=== PATIENT | male | born 1940 | race Hispanic/Latino ===

== ENCOUNTER 2018-02-26 16:31 | Inpatient (IN) | payer MEDICARE ==
[~2018-02-26] VITALS: Ht 154.9 cm; Wt 84.6 kg
[2018-02-26] MEDS ORDERED: METHYLPREDNISOLONE SOD SUCC 125MG/2ML VIAL ONE (16:40)
[2018-02-26] MEDS ORDERED: CEFTRIAXONE SODIUM 2 GM VIAL ONE (16:49)
[2018-02-26] MEDS ORDERED: SODIUM CHLORIDE 0.9% 50 ML IV ONE (16:49)
[2018-02-26] MEDS ORDERED: IPRATROPIUM/ALBUTEROL SULFATE 3 ML SOLUTION IH ONE (16:51)
[2018-02-26 16:55] LABS: EOSINOPHILS % (AUTO) 1.3 % (0.0-8.0); HEMATOCRIT 43.6 % (42-54); LYMPHOCYTES % (AUTO) 14.7 % (21.0-51.0); MEAN CORPUSCULAR HEMOGLOBIN 29.5 pg (27.0-33.0); MEAN CORPUSCULAR HGB CONC 34.2 g/dL (32.0-36.0); MEAN CORPUSCULAR VOLUME 86.1 fL (79-99); MONOCYTES % (AUTO) 8.4 % (3.0-13.0); NEUTROPHILS % (AUTO) 74.6 % (40.0-77.0); NUCLEATED RED BLOOD CELLS 0.2 % (0.0-0.19); PLATELET COUNT (AUTO) 218 K/uL (130-400); RED BLOOD CELL COUNT(AUTO) 5.07 MIL/uL (4.50-6.20); RED CELL DISTRIBUTION WIDTH 13.4 % (11.0-15.5); WHITE BLOOD COUNT (AUTO) 8.5 K/uL (4.8-10.8)
[2018-02-26 17:08] LABS: ABG BASE EXCESS -3.7 mmol/L (-2.0-3.0); ABG HCO3 19.4 mmol/L (21.0-28.0); ABG OXYGEN SATURATION 95.1 % (95.0-99.0); ABG PCO2 31 mmHg (35-48)
[2018-02-26 17:12] LABS: ALBUMIN 4.1 g/dL (3.5-5.0); BILIRUBIN,DIRECT 0.1 mg/dL (0.0-0.3); BILIRUBIN,TOTAL 0.4 mg/dL (0.2-1.0); TOTAL PROTEIN, SERUM 7.3 g/dL (6.0-8.3)
[2018-02-26 17:18] LABS: B-TYPE NATRIURETIC PEPTIDE 191 pg/mL (0-100)
[2018-02-26] MEDS ORDERED: ALBUTEROL SULFATE 0.083% 2.5 MG/3 ML INH IH ONE (18:35)
[2018-02-26] MEDS ORDERED: SODIUM CHLORIDE 0.9% 1000ML 1,000 ML IV ONE (21:05)
[2018-02-26] MEDS ORDERED: LEVOFLOXACIN 750 MG/D5W 150 ML 150 ML ONE (21:05)
[2018-02-26] MEDS ORDERED: INSULIN HUMULIN R 100 UNIT/ML 3ML ONE (22:06)
[2018-02-26 23:00] VITALS: BP 156/93
[2018-02-26] MEDS ORDERED: OMEP20CA10 PO (23:28)
[2018-02-26] MEDS ORDERED: AMOX500C2 PO (23:28)
[2018-02-26] MEDS ORDERED: CLAR500T PO (23:28)
[2018-02-27 03:00] VITALS: BP 152/87
[2018-02-27 04:08] LABS: BASOPHILS % (AUTO) 0.1 % (0.0-5.0); HEMATOCRIT 39.5 % (42-54); LYMPHOCYTES % (AUTO) 7.3 % (21.0-51.0); MEAN CORPUSCULAR HEMOGLOBIN 29.2 pg (27.0-33.0); MEAN CORPUSCULAR HGB CONC 34.3 g/dL (32.0-36.0); MEAN CORPUSCULAR VOLUME 85.2 fL (79-99); MONOCYTES % (AUTO) 1.3 % (3.0-13.0); NEUTROPHILS % (AUTO) 91.3 % (40.0-77.0); PLATELET COUNT (AUTO) 161 K/uL (130-400); RED BLOOD CELL COUNT(AUTO) 4.64 MIL/uL (4.50-6.20); RED CELL DISTRIBUTION WIDTH 13.3 % (11.0-15.5); WHITE BLOOD COUNT (AUTO) 6.7 K/uL (4.8-10.8)
[2018-02-27] MEDS ORDERED: POTASSIUM CHLORIDE 20MEQ/100ML 100 ML IV PRN (04:15)
[2018-02-27] MEDS ORDERED: DEXTROSE 50%-WATER 50 ML DISP.SYRIN IV PRN (04:15)
[2018-02-27] MEDS ORDERED: ONDANSETRON HCL 4 MG/2 ML VIAL IVP PRN (04:15)
[2018-02-27] MEDS ORDERED: ACETAMINOPHEN 325 MG TAB PO PRN ×2 (04:15)
[2018-02-27] MEDS ORDERED: GLUCAGON 1MG KIT 1 MG ML IM PRN (04:15)
[2018-02-27] MEDS ORDERED: POTASSIUM CHLORIDE 10% ELIXIR 20 MEQ/15 ML UDCUP PO PRN (04:15)
[2018-02-27] MEDS ORDERED: LIDOCAINE HCL-MPF 1% 2ML VIAL IVP PRN (04:15)
[2018-02-27 04:18] LABS: CREATININE 1.4 mg/dL (0.5-1.5); POTASSIUM 3.6 mmol/L (3.5-5.1)
[2018-02-27] MEDS: METHYLPREDNISOLONE SOD SUCC 40MG/ML 1ML IVP SCH ×3 (05:32→20:56)
[2018-02-27] MEDS: INSULIN HUMULIN R 100 UNIT/ML 3ML SQ SCH ×4 (05:32→21:00)
[2018-02-27] MEDS: NITROGLYCERIN 0.4 MG SL TAB SL PRN ×3 (07:33→09:00)
[2018-02-27 08:00] VITALS: BP 146/92
[2018-02-27] MEDS ORDERED: NITROGLYCERIN 0.4 MG SL TAB SL ONE (08:26)
[2018-02-27] MEDS ORDERED: DILTIAZEM HCL 5 MG/ML 5 ML VIAL IVP PRN (08:45)
[2018-02-27] MEDS ORDERED: DILTIAZEM HCL 125 MG/25 ML 125 MG in SODIUM CHLORIDE 0.9% 100 ML IV PRN (08:45)
[2018-02-27] MEDS ORDERED: LEVOFLOXACIN 750 MG/D5W 150 ML 150 ML IV SCH (09:00)
[2018-02-27 09:36] LABS: CREATINE KINASE, TOTAL 68 U/L (21-232); MYOGLOBIN 81 ng/mL (10-92); TROPONIN I < 0.04 ng/mL (0.00-0.06)
[2018-02-27] MEDS: ENOXAPARIN SODIUM 40 MG/0.4 ML SYRINGE SQ SCH (11:39)
[2018-02-27] MEDS: PANTOPRAZOLE SODIUM 40 MG TABLET.DR PO SCH (11:40)
[2018-02-27 12:00] VITALS: BP 123/76
[2018-02-27 13:46] LABS: CREATINE KINASE, TOTAL 60 U/L (21-232); MYOGLOBIN 107 ng/mL (10-92); TROPONIN I < 0.04 ng/mL (0.00-0.06)
[2018-02-27] MEDS ORDERED: SIMV20TA6 PO (14:48)
[2018-02-27] MEDS ORDERED: SOTA80TA PO (14:48)
[2018-02-27] MEDS ORDERED: LISI-613 PO (14:48)
[2018-02-27] MEDS ORDERED: AMLO5TAB7 PO (14:48)
[2018-02-27] MEDS ORDERED: HYDR25TA PO (14:48)
[2018-02-27] MEDS ORDERED: METOPROLOL TARTRATE 25 MG TAB PO SCH (15:00)
[2018-02-27] MEDS ORDERED: TIMO.5OS OU (15:41)
[2018-02-27] MEDS ORDERED: ICOS1CAP PO (15:41)
[2018-02-27] MEDS ORDERED: DICL100G31 TP (15:41)
[2018-02-27] MEDS ORDERED: METF-446 PO (15:41)
[2018-02-27] MEDS ORDERED: TAMS0.4C32 PO (15:41)
[2018-02-27] MEDS ORDERED: BRIN8DRO OU (15:41)
[2018-02-27] MEDS ORDERED: TRIA15CR45 TP (15:41)
[2018-02-27] MEDS ORDERED: ALLO300T2 PO (15:41)
[2018-02-27] MEDS ORDERED: SERT25TA5 PO (15:41)
[2018-02-27] MEDS ORDERED: BIMA2.5D4 OU (15:41)
[2018-02-27] MEDS ORDERED: TERB250T51 PO (15:41)
[2018-02-27] MEDS ORDERED: PIOG15TA66 PO (15:41)
[2018-02-27 16:00] VITALS: BP 140/73
[2018-02-27 19:00] VITALS: BP 146/74
[2018-02-27 21:29] LABS: CREATINE KINASE, TOTAL 87 U/L (21-232); MYOGLOBIN 175 ng/mL (10-92); TROPONIN I < 0.04 ng/mL (0.00-0.06)
[2018-02-27 23:00] VITALS: BP 127/67
[2018-02-28 04:00] VITALS: BP 130/91
[2018-02-28] MEDS: METHYLPREDNISOLONE SOD SUCC 40MG/ML 1ML IVP SCH (05:35)
[2018-02-28] MEDS: INSULIN HUMULIN R 100 UNIT/ML 3ML SQ SCH ×4 (06:06→22:10)
[2018-02-28 07:28] VITALS: BP 148/93
[2018-02-28] MEDS: TIMOLOL MALEATE 0.5% 5 ML BOTTLE OU SCH ×2 (09:00→20:38)
[2018-02-28] MEDS: PIOGLITAZONE HCL 15 MG TAB PO SCH (09:00)
[2018-02-28] MEDS: TRIAMCINOLONE ACETONIDE 0.1% CREAM 15GM TP SCH ×2 (09:00→21:00)
[2018-02-28] MEDS: ENOXAPARIN SODIUM 40 MG/0.4 ML SYRINGE SQ SCH (09:44)
[2018-02-28] MEDS: TAMSULOSIN HCL 0.4 MG CAP.ER.24H PO SCH (09:44)
[2018-02-28] MEDS: PANTOPRAZOLE SODIUM 40 MG TABLET.DR PO SCH (09:45)
[2018-02-28] MEDS: AMOXICILLIN 500 MG CAPSULE PO SCH ×2 (09:45→20:36)
[2018-02-28] MEDS: ALLOPURINOL 300 MG TABLET PO SCH (09:45)
[2018-02-28] MEDS: SOTALOL HCL 80 MG TABLET PO SCH ×2 (09:45→20:36)
[2018-02-28] MEDS: HYDROCHLOROTHIAZIDE 25 MG TABLET PO SCH (09:45)
[2018-02-28] MEDS: PREDNISONE 20 MG TABLET PO SCH (09:45)
[2018-02-28] MEDS: LISINOPRIL 20 MG TABLET PO SCH (09:45)
[2018-02-28] MEDS: AMLODIPINE BESYLATE 5 MG TAB PO SCH (09:45)
[2018-02-28] MEDS: CLARITHROMYCIN 500 MG PO SCH ×2 (11:00→21:00)
[2018-02-28] MEDS: Terbinafine HCl 250 MG PO SCH ×2 (11:00→21:00)
[2018-02-28] MEDS: DICLOFENAC SODIUM 2 GM TP SCH ×2 (11:22→21:00)
[2018-02-28 11:26] VITALS: BP 154/87
[2018-02-28] MEDS: Brinzolamide/Brimonid Tart (Simbrinza 1%-0.2% Eye Drops OU SCH ×2 (12:00→21:00)
[2018-02-28 17:05] VITALS: BP 131/76
[2018-02-28] MEDS: METFORMIN HCL 500 MG TABLET PO SCH (18:43)
[2018-02-28 20:01] VITALS: BP 117/74
[2018-02-28] MEDS: SIMVASTATIN 20 MG TABLET PO SCH (20:37)
[2018-02-28] MEDS: SERTRALINE HCL 50 MG TABLET PO SCH (20:37)
[2018-02-28] MEDS: OMEPRAZOLE 20 MG PO SCH (21:00)
[2018-02-28] MEDS ORDERED: LEVOFLOXACIN 750 MG/D5W 150 ML 150 ML IV SCH (21:00)
[2018-02-28] MEDS: Icosapent Ethyl (Vascepa) 1 GM PO SCH (21:00)
[2018-02-28] MEDS: Bimatoprost (Lumigan) 1 DROP OU SCH (21:00)
[2018-02-28 23:47] VITALS: BP 115/66
[2018-03-01 04:01] VITALS: BP 132/78
[2018-03-01] MEDS: INSULIN HUMULIN R 100 UNIT/ML 3ML SQ SCH ×4 (06:26→21:00)
[2018-03-01 08:07] VITALS: BP 134/96
[2018-03-01] MEDS: CLARITHROMYCIN 500 MG PO SCH ×2 (08:48→21:00)
[2018-03-01] MEDS: Terbinafine HCl 250 MG PO SCH ×2 (08:49→21:00)
[2018-03-01] MEDS: OMEPRAZOLE 20 MG PO SCH ×2 (08:49→21:00)
[2018-03-01] MEDS: DICLOFENAC SODIUM 2 GM TP SCH ×2 (08:50→21:00)
[2018-03-01] MEDS: Icosapent Ethyl (Vascepa) 1 GM PO SCH (09:36)
[2018-03-01] MEDS: AMOXICILLIN 500 MG CAPSULE PO SCH ×2 (10:17→20:32)
[2018-03-01] MEDS: PIOGLITAZONE HCL 15 MG TAB PO SCH (10:18)
[2018-03-01] MEDS: HYDROCHLOROTHIAZIDE 25 MG TABLET PO SCH (10:18)
[2018-03-01] MEDS: SOTALOL HCL 80 MG TABLET PO SCH ×2 (10:18→20:31)
[2018-03-01] MEDS: PREDNISONE 20 MG TABLET PO SCH (10:18)
[2018-03-01] MEDS: TAMSULOSIN HCL 0.4 MG CAP.ER.24H PO SCH (10:18)
[2018-03-01] MEDS: LISINOPRIL 20 MG TABLET PO SCH (10:18)
[2018-03-01] MEDS: ALLOPURINOL 300 MG TABLET PO SCH (10:18)
[2018-03-01] MEDS: AMLODIPINE BESYLATE 5 MG TAB PO SCH (10:18)
[2018-03-01] MEDS: TRIAMCINOLONE ACETONIDE 0.1% CREAM 15GM TP SCH (10:19)
[2018-03-01] MEDS: ENOXAPARIN SODIUM 40 MG/0.4 ML SYRINGE SQ SCH (10:19)
[2018-03-01] MEDS: TIMOLOL MALEATE 0.5% 5 ML BOTTLE OU SCH ×2 (10:20→21:00)
[2018-03-01] MEDS: Brinzolamide/Brimonid Tart (Simbrinza 1%-0.2% Eye Drops OU SCH ×2 (10:20→21:00)
[2018-03-01] MEDS: METFORMIN HCL 500 MG TABLET PO SCH ×2 (10:23→17:17)
[2018-03-01 11:32] VITALS: BP 127/87
[2018-03-01 16:36] VITALS: BP 150/85
[2018-03-01 20:03] VITALS: BP 143/89
[2018-03-01] MEDS: SIMVASTATIN 20 MG TABLET PO SCH (20:31)
[2018-03-01] MEDS: SERTRALINE HCL 50 MG TABLET PO SCH (20:31)
[2018-03-01] MEDS: Bimatoprost (Lumigan) 1 DROP OU SCH (21:00)
[2018-03-01] MEDS: BUDESONIDE 0.5 MG/2 ML INH IH SCH (21:27)
[2018-03-01 23:32] VITALS: BP 155/90
[2018-03-02 03:40] LABS: MEAN CORPUSCULAR HEMOGLOBIN 29.5 pg (27.0-33.0); MEAN CORPUSCULAR HGB CONC 34.2 g/dL (32.0-36.0); MEAN CORPUSCULAR VOLUME 86.1 fL (79-99); PLATELET COUNT (AUTO) 168 K/uL (130-400); RED BLOOD CELL COUNT(AUTO) 4.41 MIL/uL (4.50-6.20); RED CELL DISTRIBUTION WIDTH 13.4 % (11.0-15.5); WHITE BLOOD COUNT (AUTO) 11.9 K/uL (4.8-10.8)
[2018-03-02 03:52] VITALS: BP 150/98
[2018-03-02 04:00] LABS: CREATININE 1.5 mg/dL (0.5-1.5); MAGNESIUM 2.2 mg/dL (1.80-2.40); PHOSPHORUS 3.8 mg/dL (2.5-4.9); POTASSIUM 3.5 mmol/L (3.5-5.1)
[2018-03-02] MEDS: POTASSIUM CHLORIDE 20 MEQ ERTAB PO PRN ×2 (06:10→09:31)
[2018-03-02] MEDS: BUDESONIDE 0.5 MG/2 ML INH IH SCH (06:28)
[2018-03-02] MEDS: INSULIN HUMULIN R 100 UNIT/ML 3ML SQ SCH ×2 (06:50→11:30)
[2018-03-02 07:25] VITALS: BP 155/95
[2018-03-02] MEDS: CLARITHROMYCIN 500 MG PO SCH (09:00)
[2018-03-02] MEDS: OMEPRAZOLE 20 MG PO SCH (09:00)
[2018-03-02] MEDS: Terbinafine HCl 250 MG PO SCH (09:00)
[2018-03-02] MEDS: DICLOFENAC SODIUM 2 GM TP SCH (09:00)
[2018-03-02] MEDS: AMOXICILLIN 500 MG CAPSULE PO SCH (09:25)
[2018-03-02] MEDS: ALLOPURINOL 300 MG TABLET PO SCH (09:25)
[2018-03-02] MEDS: METFORMIN HCL 500 MG TABLET PO SCH (09:25)
[2018-03-02] MEDS: SOTALOL HCL 80 MG TABLET PO SCH (09:25)
[2018-03-02] MEDS: LISINOPRIL 20 MG TABLET PO SCH (09:26)
[2018-03-02] MEDS: PREDNISONE 20 MG TABLET PO SCH (09:26)
[2018-03-02] MEDS: TAMSULOSIN HCL 0.4 MG CAP.ER.24H PO SCH (09:26)
[2018-03-02] MEDS: AMLODIPINE BESYLATE 5 MG TAB PO SCH (09:26)
[2018-03-02] MEDS: PIOGLITAZONE HCL 15 MG TAB PO SCH (09:27)
[2018-03-02] MEDS: HYDROCHLOROTHIAZIDE 25 MG TABLET PO SCH (09:27)
[2018-03-02] MEDS: ENOXAPARIN SODIUM 40 MG/0.4 ML SYRINGE SQ SCH (09:29)
[2018-03-02] MEDS: TRIAMCINOLONE ACETONIDE 0.1% CREAM 15GM TP SCH (09:32)
[2018-03-02] MEDS: TIMOLOL MALEATE 0.5% 5 ML BOTTLE OU SCH (09:32)
[2018-03-02] MEDS: Brinzolamide/Brimonid Tart (Simbrinza 1%-0.2% Eye Drops OU SCH (09:33)
[2018-03-02 11:28] VITALS: BP 133/95
== END 2018-03-02 17:00 | disposition home or self-care (01) | DRG 189 ==
LOC: EDH 16:31 → EDHIP 18:30 → OBSVTOIN 18:30 → 2DH 22:14
PROVIDERS: ADMIT Internal Medicine Critical Care Medicine; ATTEND Internal Medicine Critical Care Medicine
PROC: 5A09357 Assistance with Respiratory Ventilation, Less than 24 Consecutive Hours, Continuous Positive Airway Pressure (ICD-10-PCS; principal; 2018-02-26)
PROC: 5A09357 Assistance with Respiratory Ventilation, Less than 24 Consecutive Hours, Continuous Positive Airway Pressure (ICD-10-PCS; 2018-02-28)
DX: J96.21 Acute and chronic respiratory failure with hypoxia (principal); J44.0 Chronic obstructive pulmonary disease with (acute) lower respiratory infection; J44.1 Chronic obstructive pulmonary disease with (acute) exacerbation; I50.30 Unspecified diastolic (congestive) heart failure; J20.9 Acute bronchitis, unspecified; I48.0 Paroxysmal atrial fibrillation; E78.5 Hyperlipidemia, unspecified; I11.0 Hypertensive heart disease with heart failure; I35.0 Nonrheumatic aortic (valve) stenosis; R29.6 Repeated falls; Z79.01 Long term (current) use of anticoagulants; Z86.73 Personal history of transient ischemic attack (TIA), and cerebral infarction without residual deficits; Z87.891 Personal history of nicotine dependence; Z91.19 Patient's noncompliance with other medical treatment and regimen
CPT/HCPCS: 36415; 36600; 71045; 80048; 80076; 82550; 82803; 82948; 83605; 83735; 83874; 83880; 84100; 84484; 85025; 85027; 87040; 87804; 93005; 93306; 94640; 94660; 94664; 97039; J0696; J1650; J1815; J1956; J2920; J2930; J3480; J3490; J7030

== ENCOUNTER → 2018-03-23 | Outpatient (CLI) | payer OTHER ==
[~2018-03-23] MED LIST: ALLO300T2 PO; AMLO5TAB7 PO; BIMA2.5D4 OU; BRIN8DRO OU; HYDR25TA PO; ICOS1CAP PO; LISI-613 PO; METF-446 PO; OMEP20CA10 PO; PIOG15TA66 PO; SERT25TA5 PO; SIMV20TA6 PO; SOTA80TA PO; TAMS0.4C32 PO; TIMO.5OS OU; TRIA15CR45 TP
== END | disposition home or self-care (01) ==
LOC: OIH 14:51
PROVIDERS: ATTEND Internal Medicine Cardiovascular Disease
DX: Z13.6 Encounter for screening for cardiovascular disorders (principal)
CPT/HCPCS: 75571

== ENCOUNTER → 2018-07-27 | Outpatient (CLI) | payer MEDICARE ==
[~2018-07-27] MED LIST changes: +AEC81 PO; -ALLO300T2 PO; -AMLO5TAB7 PO; +APIX5TAB PO; +ATOR20TA65 PO; +CETI10TA57 PO; +FAMO20TA8 PO; +FURO20TA6 PO; -HYDR25TA PO; -ICOS1CAP PO; -LISI-613 PO; -METF-446 PO; +METO25 PO; -OMEP20CA10 PO; -PIOG15TA66 PO; -SERT25TA5 PO; -SIMV20TA6 PO; -SOTA80TA PO; +TRAM50TA4 PO
== END | disposition home or self-care (01) ==
LOC: SHCH 13:23
PROVIDERS: ATTEND Internal Medicine Cardiovascular Disease
DX: I87.2 Venous insufficiency (chronic) (peripheral) (principal)
CPT/HCPCS: 93970

== ENCOUNTER 2018-08-02 23:48 | Emergency (ER) | payer MEDICARE ==
[2018-08-03 01:29] LABS: BASOPHILS % (AUTO) 1.1 % (0.0-5.0); EOSINOPHILS % (AUTO) 1.3 % (0.0-8.0); HEMATOCRIT 39.8 % (42-54); MEAN CORPUSCULAR HEMOGLOBIN 27.4 pg (27.0-33.0); MEAN CORPUSCULAR HGB CONC 33.3 g/dL (32.0-36.0); MEAN CORPUSCULAR VOLUME 82.3 fL (79-99); MONOCYTES % (AUTO) 6.3 % (3.0-13.0); NEUTROPHILS % (AUTO) 73.3 % (40.0-77.0); NUCLEATED RED BLOOD CELLS 0.1 % (0.0-0.19); PLATELET COUNT (AUTO) 201 K/uL (130-400); RED BLOOD CELL COUNT(AUTO) 4.84 MIL/uL (4.50-6.20); RED CELL DISTRIBUTION WIDTH 15.3 % (11.0-15.5); WHITE BLOOD COUNT (AUTO) 8.5 K/uL (4.8-10.8)
[2018-08-03 01:46] LABS: CREATININE 1.5 mg/dL (0.5-1.5); POTASSIUM 3.4 mmol/L (3.5-5.1)
[2018-08-03 01:49] LABS: APPEARANCE,URINE Clear (CLEAR); BILIRUBIN,URINE Negative (NEGATIVE); COLOR,URINE Dark Yellow (YELLOW); GLUCOSE, URINE (UA) Negative (NEGATIVE); KETONES,URINE Negative (NEGATIVE); LEUKOCYTE ESTERASE ,URINE Negative (NEGATIVE); NITRATE,URINE Negative (NEGATIVE); OCCULT BLOOD,URINE Negative (NEGATIVE); PROTEIN,URINE Negative (NEGATIVE); UROBILINOGEN,URINE 0.2 mg/dL (0.2-1.0)
[2018-08-03 01:51] LABS: BILIRUBIN,TOTAL 0.5 mg/dL (0.2-1.0); TOTAL PROTEIN, SERUM 7.5 g/dL (6.0-8.3)
[2018-08-03] MEDS ORDERED: DiphenhydrAMINE HCL 50 MG/ML VIAL ONE (02:12)
== END 2018-08-03 02:27 | disposition home or self-care (01) ==
LOC: EDH 23:48
DX: L29.9 Pruritus, unspecified (principal); I10 Essential (primary) hypertension; E11.9 Type 2 diabetes mellitus without complications; K21.9 Gastro-esophageal reflux disease without esophagitis; J44.9 Chronic obstructive pulmonary disease, unspecified; E78.5 Hyperlipidemia, unspecified; Z98.890 Other specified postprocedural states
CPT/HCPCS: 36415; 80053; 81003; 85025; 93005; 96374; 99285; J1200

== ENCOUNTER 2019-03-15 08:04 | Inpatient (IN) | payer MEDICARE ==
[~2019-03-15] VITALS: Ht 167.6 cm; Wt 84.6 kg
[2019-03-15] VITALS (9 sets, daily range): BP systolic 103–149; BP diastolic 57–105
[2019-03-15] MEDS ORDERED: ASPIRIN 81MG TAB.CHEW ONE (08:08)
[2019-03-15] MEDS ORDERED: AMIODARONE HCL 50 MG/ML 3 ML VIAL ONE (08:22)
[2019-03-15] MEDS ORDERED: DEXTROSE 5%-WATER 100 ML IV ONE (08:23)
[2019-03-15 08:27] LABS: BASOPHILS % (AUTO) 0.6 % (0.0-5.0); EOSINOPHILS % (AUTO) 1.9 % (0.0-8.0); LYMPHOCYTES % (AUTO) 22.5 % (21.0-51.0); MEAN CORPUSCULAR VOLUME 85.4 fL (79-99); MONOCYTES % (AUTO) 7.9 % (3.0-13.0); NEUTROPHILS % (AUTO) 67.1 % (40.0-77.0); NUCLEATED RED BLOOD CELLS 0.1 % (0.0-0.19); PLATELET COUNT (AUTO) 156 K/uL (130-400); RED BLOOD CELL COUNT(AUTO) 5.74 MIL/uL (4.50-6.20); RED CELL DISTRIBUTION WIDTH 14.9 % (11.0-15.5); WHITE BLOOD COUNT (AUTO) 8.6 K/uL (4.8-10.8)
[2019-03-15 08:38] LABS: CREATININE 1.4 mg/dL (0.5-1.5); POTASSIUM 3.7 mmol/L (3.5-5.1)
[2019-03-15 08:43] LABS: ALBUMIN 4.3 g/dL (3.5-5.0); BILIRUBIN,TOTAL 0.5 mg/dL (0.2-1.0); INR 1.06 (0.85-1.15); PARTIAL THROMBOPLASTIN TIME 30.4 SEC (26.3-35.5); PROTHROMBIN TIME 11.1 SEC (9.6-11.6); TOTAL PROTEIN, SERUM 7.8 g/dL (6.0-8.3)
[2019-03-15] MEDS ORDERED: AMIODARONE HCL 900 MG in DEXTROSE 5%-WATER 500 ML IV PRN (08:45)
[2019-03-15 08:52] LABS: B-TYPE NATRIURETIC PEPTIDE 885 pg/mL (0-100)
[2019-03-15] MEDS ORDERED: SODIUM CHLORIDE 0.9% 1000ML 1,000 ML IV SCH (14:30)
[2019-03-15] MEDS ORDERED: HYDROCODONE/ACETAMINOPHEN 5/325 MG TAB PO PRN (14:30)
[2019-03-15] MEDS ORDERED: MORPHINE SULFATE 2 MG/ML 1ML SYG IVP PRN (14:30)
[2019-03-15] MEDS ORDERED: AMIODARONE HCL 900 MG in DEXTROSE 5%-WATER 500 ML IV SCH (14:30)
[2019-03-15] MEDS ORDERED: ONDANSETRON HCL 4 MG/2 ML VIAL IVP PRN (14:30)
[2019-03-15] MEDS ORDERED: HYDRALAZINE HCL 20 MG/ML VIAL IV PRN (14:30)
[2019-03-15] MEDS ORDERED: ACETAMINOPHEN 325 MG TAB PO PRN (14:30)
[2019-03-15] MEDS ORDERED: DEXTROSE 50%-WATER 50 ML DISP.SYRIN IV PRN (14:30)
[2019-03-15] MEDS ORDERED: LACTULOSE 20 GM/30 ML UDCUP PO PRN (14:30)
[2019-03-15] MEDS ORDERED: DOCUSATE SODIUM 100 MG CAP PO PRN (14:30)
[2019-03-15] MEDS ORDERED: HEPARIN SODIUM 5000UNIT/ML 1ML VIAL SQ SCH (14:30)
[2019-03-15] MEDS ORDERED: GLUCAGON 1MG KIT 1 MG ML IM PRN (14:30)
[2019-03-15] MEDS ORDERED: FUROSEMIDE 10 MG/ML 4ML VIAL IV SCH (14:45)
[2019-03-15] MEDS ORDERED: LIDOCAINE HCL-MPF 1% 2ML VIAL IV PRN (15:15)
[2019-03-15] MEDS ORDERED: POTASSIUM CHLORIDE 20MEQ/100ML 100 ML IV PRN (15:15)
[2019-03-15] MEDS ORDERED: POTASSIUM CHLORIDE 10% ELIXIR 20 MEQ/15 ML UDCUP PO PRN (15:15)
[2019-03-15] MEDS: INSULIN HUMULIN R 100 UNIT/ML 3ML SQ SCH ×2 (16:30→21:00)
[2019-03-15] MEDS ORDERED: FUROSEMIDE 10 MG/ML 4ML VIAL ONE (16:35)
[2019-03-15] MEDS ORDERED: ENOXAPARIN SODIUM 100 MG/1 ML SQ ONE (17:08)
[2019-03-15 17:20] LABS: TROPONIN I 0.14 ng/mL (0.00-0.06)
[2019-03-15] MEDS ORDERED: TAMSULOSIN HCL 0.4 MG CAP.ER.24H ONE (17:53)
[2019-03-15] MEDS ORDERED: METOPROLOL TARTRATE 25 MG TAB ONE (17:55)
--- NOTE | 2019-03-15 19:45 | NUR ---
Received pt from ER on Amiodarone drip,pt denies pain or any discomfort at this time.
[2019-03-15 19:59] LABS: TROPONIN I 0.1 ng/mL (0.00-0.06)
[2019-03-15] MEDS: TRIAMCINOLONE ACETONIDE 0.1% CREAM 15GM TP SCH (21:00)
[2019-03-15] MEDS: BRIMONID TART OU SCH (21:00)
[2019-03-15] MEDS: BRINZOLAMIDE OU SCH (21:00)
[2019-03-15] MEDS: ENOXAPARIN SODIUM 100 MG/1 ML SQ SCH (21:00)
[2019-03-15] MEDS: LATANOPROST 2.5 ML DROPS OU SCH (21:00)
[2019-03-15] MEDS: METOPROLOL TARTRATE 25 MG TAB PO SCH (21:38)
[2019-03-15] MEDS: FAMOTIDINE 20MG TAB 20 MG TAB PO SCH (21:38)
[2019-03-15] MEDS: ATORVASTATIN CALCIUM 20 MG TABLET PO SCH (21:38)
[2019-03-16] VITALS (14 sets, daily range): BP systolic 111–155; BP diastolic 49–96
[2019-03-16 05:32] LABS: AMPHET/METH SCREEN,URINE NEGATIVE (NEGATIVE); BARBITURATE SCREEN, URINE NEGATIVE (NEGATIVE); BENZODIAZEPINES SCREEN,URINE NEGATIVE (NEGATIVE); CANNABINOID SCREEN,URINE NEGATIVE (NEGATIVE); COCAINE SCREEN,URINE NEGATIVE (NEGATIVE); OPIATE SCREEN,URINE NEGATIVE (NEGATIVE); PHENCYCLIDINE SCREEN,URINE NEGATIVE (NEGATIVE)
[2019-03-16 06:02] LABS: HEMATOCRIT 41.1 % (42-54); MEAN CORPUSCULAR HEMOGLOBIN 29.4 pg (27.0-33.0); MEAN CORPUSCULAR HGB CONC 34.1 g/dL (32.0-36.0); MEAN CORPUSCULAR VOLUME 86.3 fL (79-99); PLATELET COUNT (AUTO) 128 K/uL (130-400); RED BLOOD CELL COUNT(AUTO) 4.77 MIL/uL (4.50-6.20); RED CELL DISTRIBUTION WIDTH 14.9 % (11.0-15.5); WHITE BLOOD COUNT (AUTO) 6.2 K/uL (4.8-10.8)
[2019-03-16 06:09] LABS: B-TYPE NATRIURETIC PEPTIDE 176 pg/mL (0-100)
[2019-03-16 06:15] LABS: ALBUMIN 3.7 g/dL (3.5-5.0); BILIRUBIN,DIRECT 0.1 mg/dL (0.0-0.3); BILIRUBIN,TOTAL 0.6 mg/dL (0.2-1.0); CREATININE 1.5 mg/dL (0.5-1.5); MAGNESIUM 1.9 mg/dL (1.80-2.40); PHOSPHORUS 3.8 mg/dL (2.5-4.9); POTASSIUM 3.1 mmol/L (3.5-5.1); TOTAL PROTEIN, SERUM 6.9 g/dL (6.0-8.3)
[2019-03-16] MEDS: INSULIN HUMULIN R 100 UNIT/ML 3ML SQ SCH ×4 (06:27→21:00)
[2019-03-16] MEDS: POTASSIUM CHLORIDE 20 MEQ ERTAB PO PRN ×4 (06:38→10:43)
--- NOTE | 2019-03-16 07:16 | NUR ---
Bedside report given to incoming NOD using SBAR all questions answered.
[2019-03-16] MEDS: TRIAMCINOLONE ACETONIDE 0.1% CREAM 15GM TP SCH ×2 (09:00→20:20)
[2019-03-16] MEDS: BRIMONID TART OU SCH ×2 (09:00→20:20)
[2019-03-16] MEDS: BRINZOLAMIDE OU SCH ×2 (09:00→20:20)
[2019-03-16] MEDS: FUROSEMIDE 20 MG TABLET PO SCH (09:11)
[2019-03-16] MEDS: ASPIRIN 325 MG TABLET PO SCH (09:11)
[2019-03-16] MEDS: CETIRIZINE HCL 5 MG TABLET PO SCH (09:11)
[2019-03-16] MEDS: TAMSULOSIN HCL 0.4 MG CAP.ER.24H PO SCH (09:11)
[2019-03-16] MEDS: METOPROLOL TARTRATE 25 MG TAB PO SCH ×2 (09:11→20:15)
[2019-03-16] MEDS: FAMOTIDINE 20MG TAB 20 MG TAB PO SCH ×2 (09:11→20:14)
[2019-03-16] MEDS: ENOXAPARIN SODIUM 100 MG/1 ML SQ SCH ×2 (09:12→20:15)
[2019-03-16] MEDS ORDERED: LEVO25TA54 PO (14:29)
[2019-03-16] MEDS ORDERED: LOSA25TA41 PO (14:29)
[2019-03-16] MEDS ORDERED: METO25TA6 PO (14:29)
[2019-03-16] MEDS ORDERED: PIOG30TA70 PO (14:29)
[2019-03-16] MEDS ORDERED: ALLO300T2 PO (14:29)
[2019-03-16] MEDS ORDERED: FURO40TA5 PO (14:29)
--- NOTE | 2019-03-16 14:32 | NUR ---
REPORT GIVEN TO MAGUE ON PCCU. ALL QUESTIONS ANSWERED. INFORMED OF PENDING REBEKAH SCAN AND EP STUDY FOR MONDAY. PATIENT AND FAMILY INFORMED. PATIENT PLACED ON TELE PACK AND MOVED TO [facility] WITH PCP. PATIENT IN STABLE CONDITION.
--- NOTE | 2019-03-16 16:55 | NUR ---
cm note met with patient and states resides at home alone, ambulates with walker and cane, no other services, states son and daughter trasnport to mds as needed. and any other needs. [facility] is pending for possible provider assistance application, did provide him with [facility] on aging info, and requested that i have rep from [facility] to come and speak to him. left information for Steff amrtino to followoup on monday. for possible provider assistance. states for now his family will assist him at home. [facility] no dc needs. Addendum: 03/16/19 at 1658 by IVÁN PANDYA CM Amended: Links added.
[2019-03-16] MEDS: ATORVASTATIN CALCIUM 20 MG TABLET PO SCH (20:14)
[2019-03-16] MEDS: AMIODARONE HCL 200 MG TABLET PO SCH (20:14)
[2019-03-16] MEDS: LATANOPROST 2.5 ML DROPS OU SCH (20:57)
[2019-03-17 03:00] VITALS: BP 127/80
[2019-03-17 04:45] LABS: HEMATOCRIT 38.6 % (42-54); MEAN CORPUSCULAR HEMOGLOBIN 29.3 pg (27.0-33.0); MEAN CORPUSCULAR VOLUME 86.2 fL (79-99); NUCLEATED RED BLOOD CELLS 0.1 % (0.0-0.19); PLATELET COUNT (AUTO) 118 K/uL (130-400); RED BLOOD CELL COUNT(AUTO) 4.48 MIL/uL (4.50-6.20); RED CELL DISTRIBUTION WIDTH 14.9 % (11.0-15.5)
[2019-03-17 04:58] LABS: B-TYPE NATRIURETIC PEPTIDE 95 pg/mL (0-100)
[2019-03-17 05:04] LABS: CREATININE 1.3 mg/dL (0.5-1.5); MAGNESIUM 1.9 mg/dL (1.80-2.40); PHOSPHORUS 3.4 mg/dL (2.5-4.9); POTASSIUM 3.7 mmol/L (3.5-5.1)
[2019-03-17 05:44] LABS: PLATELET MORPHOLOGY COMMENT LARGE PLTS PRESENT
[2019-03-17] MEDS: INSULIN HUMULIN R 100 UNIT/ML 3ML SQ SCH ×4 (06:31→21:00)
[2019-03-17 07:15] VITALS: BP 133/76
--- NOTE | 2019-03-17 07:30 | NUR ---
ASSESSMENT ENCOUNTERED PT A&OX3, CALM COOPERATIVE AND DOES NOT APPEAR TO BE IN ANY DISTRESS NOR ANY NEURO DEFICITS PRESENT. PT DENIES PAIN, SOB, NAUSEA. PT IS AMBULATORY, GAIT STEADY AND STRONG WITH STAND BY ASSIST. TELE MONITOR DISPLAYS NSR. CALL LIGHT WITHIN REACH, FAMILY AT BEDSIDE.
[2019-03-17] MEDS: BRIMONID TART OU SCH ×2 (09:00→21:22)
[2019-03-17] MEDS: BRINZOLAMIDE OU SCH ×2 (09:00→21:22)
[2019-03-17 11:15] VITALS: BP 139/78
[2019-03-17] MEDS: TAMSULOSIN HCL 0.4 MG CAP.ER.24H PO SCH (11:26)
[2019-03-17] MEDS: ASPIRIN 325 MG TABLET PO SCH (11:26)
[2019-03-17] MEDS: AMIODARONE HCL 200 MG TABLET PO SCH (11:27)
[2019-03-17] MEDS: FUROSEMIDE 20 MG TABLET PO SCH (11:27)
[2019-03-17] MEDS: METOPROLOL TARTRATE 25 MG TAB PO SCH (11:27)
[2019-03-17] MEDS: TRIAMCINOLONE ACETONIDE 0.1% CREAM 15GM TP SCH (11:27)
[2019-03-17] MEDS: FAMOTIDINE 20MG TAB 20 MG TAB PO SCH (11:27)
[2019-03-17] MEDS: ENOXAPARIN SODIUM 100 MG/1 ML SQ SCH (11:27)
[2019-03-17] MEDS: CETIRIZINE HCL 5 MG TABLET PO SCH (11:27)
[2019-03-17 16:00] VITALS: BP 130/63
[2019-03-17 20:03] VITALS: BP 131/70
[2019-03-17] MEDS: LATANOPROST 2.5 ML DROPS OU SCH (21:22)
[2019-03-17] MEDS: ATORVASTATIN CALCIUM 20 MG TABLET PO SCH (21:23)
[2019-03-17 23:57] VITALS: BP 137/76
[2019-03-18] VITALS (11 sets, daily range): BP systolic 132–183; BP diastolic 58–110
[2019-03-18 04:36] LABS: BASOPHILS % (AUTO) 0.5 % (0.0-5.0); EOSINOPHILS % (AUTO) 4.4 % (0.0-8.0); HEMATOCRIT 40.4 % (42-54); LYMPHOCYTES % (AUTO) 27.3 % (21.0-51.0); MEAN CORPUSCULAR HEMOGLOBIN 29.9 pg (27.0-33.0); MEAN CORPUSCULAR HGB CONC 34.1 g/dL (32.0-36.0); MEAN CORPUSCULAR VOLUME 87.6 fL (79-99); MONOCYTES % (AUTO) 9.7 % (3.0-13.0); NEUTROPHILS % (AUTO) 58.1 % (40.0-77.0); NUCLEATED RED BLOOD CELLS 0.1 % (0.0-0.19); PLATELET COUNT (AUTO) 107 K/uL (130-400); RED BLOOD CELL COUNT(AUTO) 4.61 MIL/uL (4.50-6.20); RED CELL DISTRIBUTION WIDTH 14.8 % (11.0-15.5); WHITE BLOOD COUNT (AUTO) 5.5 K/uL (4.8-10.8)
[2019-03-18 04:44] LABS: CREATININE 1.3 mg/dL (0.5-1.5); POTASSIUM 4.1 mmol/L (3.5-5.1)
[2019-03-18] MEDS: INSULIN HUMULIN R 100 UNIT/ML 3ML SQ SCH ×4 (06:09→21:00)
[2019-03-18] MEDS ORDERED: REGADENOSON 0.4 MG/5 ML PF SYG IVP SCH (08:30)
[2019-03-18] MEDS: BRIMONID TART OU SCH ×2 (09:00→20:43)
[2019-03-18] MEDS: FAMOTIDINE 20MG TAB 20 MG TAB PO SCH ×2 (09:00→20:40)
[2019-03-18] MEDS: BRINZOLAMIDE OU SCH ×2 (09:00→20:43)
[2019-03-18] MEDS: ENOXAPARIN SODIUM 100 MG/1 ML SQ SCH (09:00)
[2019-03-18] MEDS: TRIAMCINOLONE ACETONIDE 0.1% CREAM 15GM TP SCH (09:00)
[2019-03-18] MEDS: ASPIRIN 325 MG TABLET PO SCH (09:00)
[2019-03-18] MEDS ORDERED: BIVALIRUDIN 250 MG/VIAL IV ONE (09:30)
[2019-03-18] MEDS ORDERED: IOHEXOL 350 MG/ML 100ML INFUS..BTL IV ONE (09:31)
[2019-03-18] MEDS ORDERED: NITROGLYCERIN 5 MG/ML 10 ML VIAL IV ONE (09:31)
[2019-03-18] MEDS ORDERED: IOHEXOL-350 50ML VIAL IV ONE (09:31)
[2019-03-18] MEDS ORDERED: LIDOCAINE HCL 2% 20ML ONE (09:31)
[2019-03-18] MEDS: METOPROLOL TARTRATE 25 MG TAB PO SCH ×2 (09:48→20:40)
[2019-03-18] MEDS: AMIODARONE HCL 200 MG TABLET PO SCH ×2 (09:48→20:40)
[2019-03-18] MEDS ORDERED: FENTANYL CITRATE PF 50 MCG/1 ML 2ML VIAL ONE (10:41)
[2019-03-18] MEDS ORDERED: HEPARIN SODIUM 1000UNIT/ML 10ML VIAL ONE (11:01)
[2019-03-18] MEDS ORDERED: SODIUM CHLORIDE 0.9% 1000ML 1,000 ML IV SCH (11:53)
--- NOTE | 2019-03-18 19:30 | NUR ---
PM NOTE PATIENT RESTING IN BED, NO SIGNS OR SYMPTOMS OF DISTRESS. PATIENT IS ALERT & ORIENTED X3. DENIES PAIN OR SHORTNESS OF BREATH AT THIS TIME. PATIENT ON ROOM AIR, ON TELEMETRY PATIENT IS SINUS RHYTHM AT 64. PATIENT ABLE TO AMBULATE WITH ASSISTANCE. CALL LIGHT WITHIN REACH. INSTRUCTED TO CALL FOR ASSISTANCE. VERBALIZED UNDERSTANDING.
[2019-03-18] MEDS: ATORVASTATIN CALCIUM 20 MG TABLET PO SCH (20:40)
[2019-03-18] MEDS: LATANOPROST 2.5 ML DROPS OU SCH (23:17)
[2019-03-19] VITALS (12 sets, daily range): BP systolic 125–173; BP diastolic 55–98
[2019-03-19] MEDS: TRIAMCINOLONE ACETONIDE 0.1% CREAM 15GM TP SCH ×5 (00:04→20:32)
[2019-03-19 03:56] LABS: BASOPHILS % (AUTO) 0.6 % (0.0-5.0); CREATININE 1.3 mg/dL (0.5-1.5); EOSINOPHILS % (AUTO) 3.3 % (0.0-8.0); HEMATOCRIT 39.7 % (42-54); MEAN CORPUSCULAR HEMOGLOBIN 29.2 pg (27.0-33.0); MEAN CORPUSCULAR HGB CONC 33.7 g/dL (32.0-36.0); MEAN CORPUSCULAR VOLUME 86.5 fL (79-99); MONOCYTES % (AUTO) 8.1 % (3.0-13.0); PLATELET COUNT (AUTO) 125 K/uL (130-400); POTASSIUM 3.9 mmol/L (3.5-5.1); RED BLOOD CELL COUNT(AUTO) 4.59 MIL/uL (4.50-6.20); RED CELL DISTRIBUTION WIDTH 14.9 % (11.0-15.5); WHITE BLOOD COUNT (AUTO) 6.1 K/uL (4.8-10.8)
[2019-03-19] MEDS: INSULIN HUMULIN R 100 UNIT/ML 3ML SQ SCH ×4 (07:30→20:35)
[2019-03-19] MEDS: BRIMONID TART OU SCH ×2 (09:00→20:35)
[2019-03-19] MEDS: FAMOTIDINE 20MG TAB 20 MG TAB PO SCH ×2 (09:00→20:30)
[2019-03-19] MEDS: BRINZOLAMIDE OU SCH ×2 (09:00→20:35)
[2019-03-19] MEDS ORDERED: MIDAZOLAM HCL 1 MG/ML 2ML VIAL ONE ×2 (12:56→14:22)
[2019-03-19] MEDS ORDERED: MEPERIDINE-PF 25 MG/ML SYG ONE ×2 (12:56→14:22)
[2019-03-19] MEDS ORDERED: LIDOCAINE HCL 2% 20ML ONE (12:56)
[2019-03-19] MEDS: ASPIRIN 325 MG TABLET PO SCH (16:17)
[2019-03-19] MEDS: METOPROLOL TARTRATE 25 MG TAB PO SCH ×2 (16:17→20:30)
[2019-03-19] MEDS: CETIRIZINE HCL 5 MG TABLET PO SCH (16:17)
[2019-03-19] MEDS: TAMSULOSIN HCL 0.4 MG CAP.ER.24H PO SCH (16:17)
[2019-03-19] MEDS: FUROSEMIDE 20 MG TABLET PO SCH (16:18)
--- NOTE | 2019-03-19 20:00 | NUR ---
PM NOTE PATIENT RESTING IN BED, NO S/S OF DISTRESS. DENIES PAIN AT THIS TIME. RIGHT GROIN SITE C/D/I, NO HEMATOMA NOTED. DORSALIS PEDIS PULSE PALPABLE, EXTREMITIES WARM TO TOUCH, CAPILLARY REFILL PRESENT TO LOWER EXTREMITIES AT 2-3 SECONDS. PATIENT ALERT & ORIENTED X3, ON ROOM AIR. ON TELEMETRY PATIENT IS SINUS RHYTHM AT 78. REMINDED PATIENT BED REST IS DUE AT 2100, TO CALL BEFORE SITTING. CALL LIGHT WITHIN REACH. PATIENT VERBALIZED UNDERSTANDING.
[2019-03-19] MEDS: ATORVASTATIN CALCIUM 20 MG TABLET PO SCH (20:30)
[2019-03-19] MEDS: LATANOPROST 2.5 ML DROPS OU SCH (20:35)
[2019-03-20 04:00] VITALS: BP 145/75
[2019-03-20 04:17] LABS: HEMATOCRIT 37.8 % (42-54); MEAN CORPUSCULAR HEMOGLOBIN 29.3 pg (27.0-33.0); MEAN CORPUSCULAR HGB CONC 33.8 g/dL (32.0-36.0); MEAN CORPUSCULAR VOLUME 86.6 fL (79-99); NUCLEATED RED BLOOD CELLS 0.1 % (0.0-0.19); PLATELET COUNT (AUTO) 111 K/uL (130-400); RED BLOOD CELL COUNT(AUTO) 4.36 MIL/uL (4.50-6.20); WHITE BLOOD COUNT (AUTO) 5.2 K/uL (4.8-10.8)
[2019-03-20 04:35] LABS: CREATININE 1.4 mg/dL (0.5-1.5)
[2019-03-20] MEDS: INSULIN HUMULIN R 100 UNIT/ML 3ML SQ SCH ×3 (06:44→16:01)
[2019-03-20 07:32] VITALS: BP 103/35
--- NOTE | 2019-03-20 08:08 | NUR ---
MALIK WRIGHT, IN ROOM SPEAKING WITH PT. RE:PLAN OF CARE. QUESTIONS ANSWERED BY AIRCRAFT INSTRUMENT REPAIRER.
[2019-03-20] MEDS: BRIMONID TART OU SCH (09:00)
[2019-03-20] MEDS: BRINZOLAMIDE OU SCH (09:00)
[2019-03-20] MEDS ORDERED: AMIODARONE HCL 200 MG TABLET PO SCH (09:00)
[2019-03-20] MEDS: FAMOTIDINE 20MG TAB 20 MG TAB PO SCH (09:04)
[2019-03-20] MEDS: ASPIRIN 325 MG TABLET PO SCH (09:04)
[2019-03-20] MEDS: TAMSULOSIN HCL 0.4 MG CAP.ER.24H PO SCH (09:04)
[2019-03-20] MEDS: METOPROLOL TARTRATE 25 MG TAB PO SCH (09:04)
[2019-03-20] MEDS: CETIRIZINE HCL 5 MG TABLET PO SCH (09:04)
[2019-03-20] MEDS: FUROSEMIDE 20 MG TABLET PO SCH (09:05)
[2019-03-20] MEDS: TRIAMCINOLONE ACETONIDE 0.1% CREAM 15GM TP SCH (09:09)
[2019-03-20 12:01] VITALS: BP 134/73
[2019-03-20 15:22] VITALS: BP 145/76
== END 2019-03-20 18:02 | disposition home or self-care (01) | DRG 286 ==
LOC: EDH 08:04 → EDHIP 10:15 → 2CH 19:46 → 2DH 03-16 14:55
PROVIDERS: ADMIT Internal Medicine Pulmonary Disease; ATTEND Internal Medicine Pulmonary Disease
PROC: B2111ZZ Fluoroscopy of Multiple Coronary Arteries using Low Osmolar Contrast (ICD-10-PCS; principal; 2019-03-18)
PROC: B2181ZZ Fluoroscopy of Left Internal Mammary Bypass Graft using Low Osmolar Contrast (ICD-10-PCS; 2019-03-18)
PROC: B2131ZZ Fluoroscopy of Multiple Coronary Artery Bypass Grafts using Low Osmolar Contrast (ICD-10-PCS; 2019-03-18)
PROC: B41F1ZZ Fluoroscopy of Right Lower Extremity Arteries using Low Osmolar Contrast (ICD-10-PCS; 2019-03-18)
PROC: 4A0234Z Measurement of Cardiac Electrical Activity, Percutaneous Approach (ICD-10-PCS; 2019-03-19)
DX: T82.857A Stenosis of other cardiac prosthetic devices, implants and grafts, initial encounter (principal); I50.43 Acute on chronic combined systolic (congestive) and diastolic (congestive) heart failure; I47.2 Ventricular tachycardia; I13.0 Hypertensive heart and chronic kidney disease with heart failure and stage 1 through stage 4 chronic kidney disease, or unspecified chronic kidney disease; I48.0 Paroxysmal atrial fibrillation; E11.21 Type 2 diabetes mellitus with diabetic nephropathy; E11.22 Type 2 diabetes mellitus with diabetic chronic kidney disease; N18.3 Chronic kidney disease, stage 3 (moderate); I25.119 Atherosclerotic heart disease of native coronary artery with unspecified angina pectoris; R35.0 Frequency of micturition; R79.89 Other specified abnormal findings of blood chemistry; I25.5 Ischemic cardiomyopathy; E78.5 Hyperlipidemia, unspecified; I44.7 Left bundle-branch block, unspecified; I77.810 Thoracic aortic ectasia; I25.2 Old myocardial infarction; Z79.01 Long term (current) use of anticoagulants; Z95.3 Presence of xenogenic heart valve; Z95.1 Presence of aortocoronary bypass graft; Z79.82 Long term (current) use of aspirin; Z87.891 Personal history of nicotine dependence; Z86.73 Personal history of transient ischemic attack (TIA), and cerebral infarction without residual deficits; Z79.899 Other long term (current) drug therapy
CPT/HCPCS: 36415; 71045; 80048; 80053; 80076; 80305; 82550; 82948; 83735; 83874; 83880; 84100; 84484; 85025; 85027; 85610; 85730; 93005; 93306; 93455; 93459; 93567; 93620; 99156; 99157; 99291; C1730; C1760; C1769; C1894; G0378; J0282; J0583; J1644; J1650; J1815; J1940; J2175; J2250; J2785; J3010; J3490; J7030; J7060; Q9967

== ENCOUNTER → 2019-05-29 | Outpatient (CLI) | payer OTHER ==
[~2019-05-29] MED LIST changes: +ALBUTEROL SULFATE 0.083% 2.5 MG/3 ML INH IH ONE; +ALLO300T2 PO; -FURO20TA6 PO; +FURO40TA5 PO; +LEVO25TA54 PO; +LOSA25TA41 PO; -METO25 PO; +METO25TA6 PO; +PIOG30TA70 PO; -TRAM50TA4 PO
== END | disposition home or self-care (01) ==
LOC: RESP 11:14
PROVIDERS: ATTEND Internal Medicine Cardiovascular Disease
DX: J44.9 Chronic obstructive pulmonary disease, unspecified (principal); R06.02 Shortness of breath
CPT/HCPCS: 94060; 94727; 94729

== ENCOUNTER → 2019-06-17 | Outpatient (CLI) | payer OTHER ==
[~2019-06-17] MED LIST changes: -ALBUTEROL SULFATE 0.083% 2.5 MG/3 ML INH IH ONE
== END | disposition home or self-care (01) ==
LOC: SHCH 12:44
PROVIDERS: ATTEND Internal Medicine Cardiovascular Disease
DX: I08.0 Rheumatic disorders of both mitral and aortic valves (principal); I25.5 Ischemic cardiomyopathy
CPT/HCPCS: 93306; 93356

== ENCOUNTER → 2019-07-03 | Outpatient (CLI) | payer OTHER | END | disposition home or self-care (01) | LOC: RAH 10:07 | PROVIDERS: ATTEND Internal Medicine Cardiovascular Disease | DX: J98.11 Atelectasis (principal); J84.10 Pulmonary fibrosis, unspecified; M47.814 Spondylosis without myelopathy or radiculopathy, thoracic region; I70.0 Atherosclerosis of aorta; Z95.4 Presence of other heart-valve replacement | CPT/HCPCS: 71250 ==

== ENCOUNTER 2019-11-25 14:47 | Inpatient (IN) | payer OTHER ==
[~2019-11-25] VITALS: Ht 160 cm; Wt 86.1 kg
[2019-11-25] MEDS ORDERED: ASPIRIN 81MG TAB.CHEW ONE (15:02)
[2019-11-25] MEDS ORDERED: IOHEXOL-350 50ML VIAL IV ONE (15:08)
[2019-11-25] MEDS ORDERED: NITROGLYCERIN 2 MG/VIAL VIAL IV ONE (15:08)
[2019-11-25] MEDS ORDERED: LIDOCAINE HCL 2% 20ML ONE (15:08)
[2019-11-25] MEDS ORDERED: HEPARIN SODIUM 1000UNIT/ML 10ML VIAL ONE (15:08)
[2019-11-25] MEDS ORDERED: IOHEXOL 350 MG/ML 100ML INFUS..BTL IV ONE (15:08)
[2019-11-25] MEDS ORDERED: SODIUM BICARB 50MEQ 50ML VIAL ONE (15:08)
[2019-11-25] MEDS ORDERED: BIVALIRUDIN 250 MG/VIAL IV ONE (15:08)
[2019-11-25 15:21] LABS: ABG BASE EXCESS -1.9 mmol/L (-2.0-3.0); ABG HCO3 17.9 mmol/L (21.0-28.0); ABG OXYGEN SATURATION 99.4 % (95.0-99.0); ABG PCO2 21 mmHg (35-48)
[2019-11-25] MEDS ORDERED: CEFTRIAXONE SODIUM 2 GM VIAL ONE (15:44)
[2019-11-25 15:52] LABS: BASOPHILS % (AUTO) 0.4 % (0.0-5.0); EOSINOPHILS % (AUTO) 0.1 % (0.0-8.0); HEMATOCRIT 41.1 % (42-54); LYMPHOCYTES % (AUTO) 10.1 % (21.0-51.0); MEAN CORPUSCULAR HEMOGLOBIN 29.4 pg (27.0-33.0); MEAN CORPUSCULAR HGB CONC 33.8 g/dL (32.0-36.0); MEAN CORPUSCULAR VOLUME 87.1 fL (79-99); MONOCYTES % (AUTO) 8.9 % (3.0-13.0); NEUTROPHILS % (AUTO) 79.7 % (40.0-77.0); PLATELET COUNT (AUTO) 239 K/uL (130-400); RED BLOOD CELL COUNT(AUTO) 4.72 MIL/uL (4.50-6.20); RED CELL DISTRIBUTION WIDTH 14.6 % (11.0-15.5); WHITE BLOOD COUNT (AUTO) 8.3 K/uL (4.8-10.8)
[2019-11-25 16:00] LABS: INR 1.14 (0.85-1.15); PARTIAL THROMBOPLASTIN TIME 52.3 SEC (26.3-35.5); PROTHROMBIN TIME 12.2 SEC (9.6-11.6)
[2019-11-25] MEDS ORDERED: SODIUM CHLORIDE 0.9% 100 ML IV ONE (16:09)
[2019-11-25 16:18] LABS: POTASSIUM 3.9 mmol/L (3.5-5.1)
[2019-11-25 16:23] LABS: BILIRUBIN,TOTAL 0.7 mg/dL (0.2-1.0); TOTAL PROTEIN, SERUM 7.4 g/dL (6.0-8.3)
[2019-11-25 16:54] LABS: B-TYPE NATRIURETIC PEPTIDE 297 pg/mL (0-100)
[2019-11-25] MEDS ORDERED: ENOXAPARIN SODIUM 80 MG/0.8 ML SQ ONE (17:37)
[2019-11-25 18:14] LABS: TROPONIN I 1.26 ng/mL (0.00-0.06)
[2019-11-25] MEDS ORDERED: METHYLPREDNISOLONE SOD SUCC 40MG/ML 1ML ONE (18:48)
[2019-11-25] MEDS ORDERED: NITROGLYCERIN 1GM/1 INCH PACKET TD ONE (18:49)
[2019-11-25] MEDS ORDERED: AZITHROMYCIN 500MG+NS 250ML 250 ML IV ONE (21:53)
[2019-11-25 21:56] LABS: TROPONIN I 1.04 ng/mL (0.00-0.06)
[2019-11-26] MEDS ORDERED: METHYLPREDNISOLONE SOD SUCC 40MG/ML 1ML ONE ×3 (04:54→23:03)
[2019-11-26] MEDS ORDERED: CEFTRIAXONE SODIUM 2 GM VIAL ONE (04:54)
[2019-11-26] MEDS ORDERED: NITROGLYCERIN 1GM/1 INCH PACKET TD ONE ×2 (06:28→12:04)
[2019-11-26] MEDS ORDERED: ENOXAPARIN SODIUM 60 MG/0.6 ML SQ ONE ×2 (06:28→16:26)
[2019-11-26 06:32] LABS: ABG BASE EXCESS -4.3 mmol/L (-2.0-3.0); ABG OXYGEN SATURATION 97.7 % (95.0-99.0); ABG PCO2 27 mmHg (35-48)
[2019-11-26 07:57] LABS: BASOPHILS % (AUTO) 0.2 % (0.0-5.0); LYMPHOCYTES % (AUTO) 9.3 % (21.0-51.0); MEAN CORPUSCULAR HGB CONC 33.4 g/dL (32.0-36.0); MEAN CORPUSCULAR VOLUME 86.7 fL (79-99); MONOCYTES % (AUTO) 2.6 % (3.0-13.0); NEUTROPHILS % (AUTO) 86.7 % (40.0-77.0); PLATELET COUNT (AUTO) 226 K/uL (130-400); RED BLOOD CELL COUNT(AUTO) 4.73 MIL/uL (4.50-6.20); RED CELL DISTRIBUTION WIDTH 14.6 % (11.0-15.5)
[2019-11-26 08:34] LABS: ALBUMIN 2.8 g/dL (3.5-5.0); BILIRUBIN,TOTAL 0.4 mg/dL (0.2-1.0); CREATININE 1.7 mg/dL (0.5-1.5); POTASSIUM 4.1 mmol/L (3.5-5.1); TOTAL PROTEIN, SERUM 7.2 g/dL (6.0-8.3)
[2019-11-26 08:50] LABS: TROPONIN I 0.61 ng/mL (0.00-0.06)
[2019-11-26] MEDS ORDERED: INSULIN HUMULIN R 100 UNIT/ML 3ML ONE ×3 (12:05→23:04)
--- NOTE | 2019-11-26 12:14 | NUR ---
CHART CHECK COMPLETED. Pt IS A 79 Y.O. MALE ADMITTED SECONDARY TO COVID PUI, NON STEMI. Pt HAS A PAST MEDICAL HISTORY SIGNIFICANT FOR DM, HTN, DYSLIPIDEMIA, AND CABG. Pt WITH CURRENT DIET RECOMMENDATION FOR REGULAR TEXTURE, THIN LIQUIDS; PILLS WHOLE WITH LIQUIDS. Pt REPORTS LOSS OF APPETITE IN THE LAST DAYS. PLEASE REQUEST FORMAL SWALLOWING EVALUATION IF Pt PRESENTS WITH DIFFICULTY SWALLOWING OR PRESENTS +S/S OF ASPIRATION SUCH COUGHING, THROAT CLEAR OR WET VOCAL QUALITY DURING MEAL TIMES. Addendum: 11/26/19 at [address] Amended: Links added.
[2019-11-26] MEDS ORDERED: METOPROLOL TARTRATE 25 MG TAB ONE (13:52)
[2019-11-26 14:28] LABS: TROPONIN I 0.45 ng/mL (0.00-0.06)
--- NOTE | 2019-11-26 15:08 | NUR ---
CALL TO SON FOR DC PLANNING AND VERIFICATION OF CONTACT INFORMATION ASHUTOSH CRUZ JR STATES PATIENT LIVES ALONE, IS ACTIVE AND INDEPENDENT, HAS A CANE AND WALKER AND USES JUST THE CANE; NO LONGER DRIVES, DAUGHTER TALHA CODY TAKES TO ALL APPOINTMENTS AND PROVIDES HOUSEKEEPING, NO PROVIDER PROGRAM DCP HOME PATIENT PHONE NUMBER UPDATED, FAXED TO REGISTRATION Addendum: 11/26/19 at 1513 by CAMPBELL ANDRADE RN CM Amended: Links added.
--- NOTE | 2019-11-26 15:54 | NUR ---
DAUGHTER, TALHA COX, UPDATED ON PATIENT STATUS. DAUGHTER'S QUESTIONS ANSWERED.
[2019-11-26] MEDS ORDERED: CEFTRIAXONE SODIUM 1 GM ONE (16:26)
[2019-11-26] MEDS ORDERED: ENOXAPARIN SODIUM 60 MG/0.6 ML SQ SCH (18:00)
[2019-11-26 18:29] LABS: TROPONIN I 0.45 ng/mL (0.00-0.06)
[2019-11-26 20:00] VITALS: BP 123/67
[2019-11-26] MEDS ORDERED: ATORVASTATIN CALCIUM 20 MG TABLET PO SCH (21:00)
[2019-11-26 21:47] LABS: TROPONIN I 0.41 ng/mL (0.00-0.06)
[2019-11-26] MEDS ORDERED: APIXABAN 2.5 MG TABLET PO ONE (23:03)
[2019-11-26] MEDS ORDERED: BRIMONIDINE TARTRATE 0.2% 5 ML BOTTLE ONE (23:03)
[2019-11-26] MEDS ORDERED: ATORVASTATIN CALCIUM 20 MG TABLET ONE (23:03)
[2019-11-26] MEDS ORDERED: AZITHROMYCIN 500MG+NS 250ML 250 ML IV ONE (23:04)
[2019-11-27] VITALS: BP 144/84
[2019-11-27] MEDS ORDERED: NITROGLYCERIN 1GM/1 INCH PACKET TD ONE ×3 (01:42→12:27)
[2019-11-27 04:15] VITALS: BP 129/84
[2019-11-27] MEDS ORDERED: METHYLPREDNISOLONE SOD SUCC 40MG/ML 1ML ONE ×3 (05:11→21:44)
[2019-11-27] MEDS ORDERED: LEVOTHYROXINE 25 MCG TABLET ONE (05:12)
[2019-11-27] MEDS ORDERED: CEFTRIAXONE SODIUM 1 GM ONE ×2 (05:12→12:27)
[2019-11-27 05:33] LABS: HEMOGLOBIN A1C 6.1 % (4.0-6.0)
[2019-11-27 05:40] LABS: ALBUMIN 2.5 g/dL (3.5-5.0); BILIRUBIN,TOTAL 0.3 mg/dL (0.2-1.0); CREATININE 1.7 mg/dL (0.5-1.5); MAGNESIUM 2.2 mg/dL (1.80-2.40); POTASSIUM 3.7 mmol/L (3.5-5.1); TOTAL PROTEIN, SERUM 6.6 g/dL (6.0-8.3)
[2019-11-27] MEDS: LEVOTHYROXINE 25 MCG TABLET PO SCH (06:30)
--- NOTE | 2019-11-27 07:19 | NUR ---
Patient still in ER department, awaiting for patient to be transferred to medical floor in order to be able to initiate skilled Physical Therapy Evaluation.Ordered by MALIK Sim 11/26/2019 Addendum: 11/27/19 at 0722 by HASMUKH PERALES, PT PT Amended: Links added.
[2019-11-27 08:00] VITALS: BP_SYST 128; BP_SYST 155; BP_DIAS 66; BP_DIAS 77
[2019-11-27 08:37] LABS: ABG BASE EXCESS -1.7 mmol/L (-2.0-3.0); ABG OXYGEN SATURATION 92.5 % (95.0-99.0); ABG PCO2 30 mmHg (35-48)
[2019-11-27] MEDS: FUROSEMIDE 40 MG TABLET PO SCH (09:00)
[2019-11-27] MEDS: ASPIRIN 81 MG EC TAB PO SCH (09:00)
[2019-11-27] MEDS: LOSARTAN POTASSIUM 12.5 MG PO SCH (09:00)
[2019-11-27] MEDS: FAMOTIDINE 20MG TAB 20 MG TAB PO SCH (09:00)
[2019-11-27] MEDS: CETIRIZINE HCL 5 MG TABLET PO SCH (09:00)
[2019-11-27] MEDS: TAMSULOSIN HCL 0.4 MG CAP.ER.24H PO SCH (09:00)
[2019-11-27] MEDS: ALLOPURINOL 300 MG TABLET PO SCH (09:00)
[2019-11-27] MEDS ORDERED: CETIRIZINE HCL 5 MG TABLET PO ONE (09:11)
[2019-11-27] MEDS ORDERED: TAMSULOSIN HCL 0.4 MG CAP.ER.24H ONE (09:12)
[2019-11-27] MEDS ORDERED: METOPROLOL TARTRATE 25 MG TAB ONE ×2 (09:12→21:46)
[2019-11-27] MEDS ORDERED: FAMOTIDINE 20MG TAB 20 MG TAB ONE (09:12)
[2019-11-27] MEDS ORDERED: FUROSEMIDE 40 MG TABLET ONE (09:12)
[2019-11-27] MEDS ORDERED: ASPIRIN 81 MG EC TAB ONE (09:12)
[2019-11-27 12:00] VITALS: BP_SYST 129; BP_SYST 130; BP_DIAS 68; BP_DIAS 73
[2019-11-27 15:46] VITALS: BP 99/59
--- NOTE | 2019-11-27 16:45 | NUR ---
IN TO ASSIST PT FROM BED TO CHAIR TO PREPARE FOR DINNER AND CHECK O2 SAT ON RA. ON RA=95% AT REST LAYING DOWN. ASSISTED PATIENT UP AND WALKED A FEW STEPS AND PT O2 DECREASING. PT WITH SOB. RR=28-32. OSAT=80%, 77% LOWEST AND ASSISTED PT INTO CHAIR. PT SITS DOWN AND INSTRUCTED TO RELAX AND TAKE DEEP BREATH WITH MOUTH OUT WITH NOSE. AFTER A FEW MINS, 3-4 MINUTES OF REST AND BREATHING SLOW DEEP BREATH, PT REPORT, "ME ESTOY SINTIENDO MEJOR" MEANING "IM BEGINNING TO FEEL BETTER." AFTER 3 TO 4 MINS O2 SAT=94-96% ON RA. NOTIFIED RT JESSIE AND MALIK MEZA.
[2019-11-27] MEDS: CEFTRIAXONE SODIUM 1 GM IVP SCH (17:00)
--- NOTE | 2019-11-27 17:00 | NUR ---
SON STATES SEYMOUR NEEDS PLACEMENT NO ONE TO LOOK AFTER FATHER, NOW THAT HE IS COVID POSITIVE; STATES THEY ALL WORK, AND THEY ARE HIGH RISK, AND PATIENT NEEDS TO GO SOMEWHERE. ADVISED HIM THAT IF HE QUALIFIES, WILL GET ORDER AND START REFERRAL. WOULD PREFER [facility]. VERBAL SHY FOR [facility] AND G/PALMS, BUT PATIENT STILL NEEDS OT BE ASKED. SON STATES CM CAN DISCUSS WITH SISTER. ADIVSED HIM TO PLEASE ENSURE SISTER ANSWERS OHONE- CM HAS TRIED TO GET SISITER ON PHONE, UNSUCCESSFUL. STATES HE WILL REMIND HER. CM TO FOLLOW. CALL TO DERRICK GAN FOR PLAN, AGREED Addendum: 11/28/19 at 0812 by CAMPBELL ANDRADE RN CM Amended: Links added.
[2019-11-27] MEDS: NITROGLYCERIN 1GM/1 INCH PACKET TD SCH (18:00)
[2019-11-27] MEDS: EYE OU SCH (21:00)
[2019-11-27] MEDS: METOPROLOL TARTRATE 25 MG TAB PO SCH (21:00)
[2019-11-27] MEDS: BIMATOPROST OU SCH (21:00)
[2019-11-27] MEDS: ATORVASTATIN CALCIUM 20 MG TABLET PO SCH (21:00)
[2019-11-27] MEDS: AZITHROMYCIN 500MG+NS 250ML 250 ML IV SCH (21:00)
[2019-11-27] MEDS: SIMBRINZA OU SCH (21:00)
[2019-11-27] MEDS: INSULIN R PO SS2 SQ SCH (21:00)
[2019-11-27] MEDS: METHYLPREDNISOLONE SOD SUCC 40MG/ML 1ML IVP SCH (21:00)
[2019-11-27] MEDS: APIXABAN 5 MG TABLET PO SCH (21:00)
[2019-11-27] MEDS ORDERED: AZITHROMYCIN 500MG+NS 250ML 250 ML IV ONE (21:45)
[2019-11-27] MEDS ORDERED: ATORVASTATIN CALCIUM 20 MG TABLET ONE (21:45)
[2019-11-27] MEDS ORDERED: APIXABAN 2.5 MG TABLET PO ONE (21:45)
[2019-11-27] MEDS ORDERED: INSULIN HUMULIN R 100 UNIT/ML 3ML ONE (21:47)
[2019-11-27 23:00] VITALS: BP 169/87
--- NOTE | 2019-11-27 23:00 | NUR ---
ADMIT PT ADMITTED TO ROOM 224 AT 2300 VIA STRETCHER TRANSFERRED TO BED WITH TWO ASSIST. ALERT ORIENTED TO SELF AND STATES HE IS IN HOSPITAL BUT UNABLE TO GIVE NAME OF HOSPITAL OR MONTH/DATE HE IS EASILY REORIENTED. 02 SAT RA 92-93%. PREVIOUS ABRASIONS WITH LARGE SCABS NOTED TO RIGHT ELBOW, BILATERAL KNEES, AND FOREHEAD. SKIN TEAR TO LEFT ELBOW NEW DRESSING APPLIED. PT ORIENTED TO ROOM AND CALL RICHARDS INSTRUCTED TO CALL FOR ASSISTANCE. CONVERSATIONAL DYSPNEA NOTED ALTHOUGH PT DENIES SOB. CALL RICHARDS IN REACH BED ALARM ON.
[2019-11-28 03:24] VITALS: BP 151/73
[2019-11-28] MEDS: METHYLPREDNISOLONE SOD SUCC 40MG/ML 1ML IVP SCH ×3 (05:35→21:00)
[2019-11-28] MEDS: CEFTRIAXONE SODIUM 1 GM IVP SCH ×2 (05:35→17:16)
[2019-11-28] MEDS: NITROGLYCERIN 1GM/1 INCH PACKET TD SCH ×4 (05:36→17:14)
[2019-11-28] MEDS: LEVOTHYROXINE 25 MCG TABLET PO SCH (05:36)
[2019-11-28 05:49] LABS: BASOPHILS % (AUTO) 0.1 % (0.0-5.0); HEMATOCRIT 35.7 % (42-54); LYMPHOCYTES % (AUTO) 4.2 % (21.0-51.0); MEAN CORPUSCULAR HEMOGLOBIN 29.7 pg (27.0-33.0); MEAN CORPUSCULAR HGB CONC 33.9 g/dL (32.0-36.0); MEAN CORPUSCULAR VOLUME 87.5 fL (79-99); MONOCYTES % (AUTO) 3.5 % (3.0-13.0); NEUTROPHILS % (AUTO) 90.9 % (40.0-77.0); PLATELET COUNT (AUTO) 259 K/uL (130-400); RED BLOOD CELL COUNT(AUTO) 4.08 MIL/uL (4.50-6.20); RED CELL DISTRIBUTION WIDTH 14.6 % (11.0-15.5); WHITE BLOOD COUNT (AUTO) 10.4 K/uL (4.8-10.8)
[2019-11-28 06:37] LABS: CREATININE 1.6 mg/dL (0.5-1.5); POTASSIUM 3.4 mmol/L (3.5-5.1)
[2019-11-28] MEDS: INSULIN R PO SS2 SQ SCH ×4 (06:50→21:00)
[2019-11-28] MEDS: SIMBRINZA OU SCH ×2 (07:36→21:01)
[2019-11-28] MEDS: EYE OU SCH ×2 (07:36→21:01)
[2019-11-28] MEDS: LOSARTAN POTASSIUM 12.5 MG PO SCH (07:36)
[2019-11-28 08:00] VITALS: BP 159/73
[2019-11-28] MEDS: METOPROLOL TARTRATE 25 MG TAB PO SCH ×2 (09:40→21:00)
[2019-11-28] MEDS: TAMSULOSIN HCL 0.4 MG CAP.ER.24H PO SCH (09:40)
[2019-11-28] MEDS: ALLOPURINOL 300 MG TABLET PO SCH (09:40)
[2019-11-28] MEDS: ASPIRIN 81 MG EC TAB PO SCH (09:40)
[2019-11-28] MEDS: APIXABAN 5 MG TABLET PO SCH ×2 (09:41→21:01)
[2019-11-28] MEDS: FUROSEMIDE 40 MG TABLET PO SCH (09:41)
[2019-11-28] MEDS: CETIRIZINE HCL 5 MG TABLET PO SCH (09:41)
[2019-11-28 11:00] VITALS: BP 140/71
--- NOTE | 2019-11-28 11:29 | NUR ---
DC Plan DIscussed dcp with patient. Patient states lives alone and it would be better to go to a facility. Informed of [facility] and [facility] taking COVID patients. Patient in agreement to [facility]. Telephone Consent given for [facility] and Choice Letter. CM to send referral once PT notes are in chart. Nurse Camille love. CD Addendum: 11/28/19 at 1130 by CHRISTIANO HODGES CM Amended: Links added.
[2019-11-28 15:00] VITALS: BP 147/79
--- NOTE | 2019-11-28 17:51 | NUR ---
[facility] Update Faxed completed referral to [facility] and to Alexus Torres Pending insurance auth and PASRR. WOMACK to continue to follow. CD Addendum: 11/28/19 at 1753 by CHRISTIANO HODGES CM Amended: Links added.
[2019-11-28 19:02] VITALS: BP 128/79
[2019-11-28] MEDS: AZITHROMYCIN 500MG+NS 250ML 250 ML IV SCH (20:59)
[2019-11-28] MEDS: ATORVASTATIN CALCIUM 20 MG TABLET PO SCH (21:00)
[2019-11-28] MEDS: BIMATOPROST OU SCH (21:01)
[2019-11-28 23:01] VITALS: BP_SYST 103; BP_SYST 154; BP_DIAS 40; BP_DIAS 81
[2019-11-29] MEDS: NITROGLYCERIN 1GM/1 INCH PACKET TD SCH ×5 (00:39→23:25)
[2019-11-29 03:37] VITALS: BP 161/91
[2019-11-29 05:20] LABS: BASOPHILS % (AUTO) 0.1 % (0.0-5.0); HEMATOCRIT 34.7 % (42-54); LYMPHOCYTES % (AUTO) 4.5 % (21.0-51.0); MEAN CORPUSCULAR HEMOGLOBIN 29.2 pg (27.0-33.0); MEAN CORPUSCULAR VOLUME 85.9 fL (79-99); MONOCYTES % (AUTO) 3.3 % (3.0-13.0); NEUTROPHILS % (AUTO) 89.9 % (40.0-77.0); PLATELET COUNT (AUTO) 262 K/uL (130-400); RED BLOOD CELL COUNT(AUTO) 4.04 MIL/uL (4.50-6.20); RED CELL DISTRIBUTION WIDTH 14.5 % (11.0-15.5)
[2019-11-29] MEDS: CEFTRIAXONE SODIUM 1 GM IVP SCH ×2 (05:52→16:28)
[2019-11-29] MEDS: METHYLPREDNISOLONE SOD SUCC 40MG/ML 1ML IVP SCH ×3 (05:52→21:17)
[2019-11-29] MEDS: LEVOTHYROXINE 25 MCG TABLET PO SCH (05:53)
[2019-11-29] MEDS: INSULIN R PO SS2 SQ SCH ×4 (06:37→21:20)
[2019-11-29 06:54] LABS: ALBUMIN 2.5 g/dL (3.5-5.0); BILIRUBIN,TOTAL 0.3 mg/dL (0.2-1.0); CREATININE 1.3 mg/dL (0.5-1.5); POTASSIUM 3.5 mmol/L (3.5-5.1); TOTAL PROTEIN, SERUM 5.8 g/dL (6.0-8.3)
[2019-11-29 08:00] VITALS: BP 156/95
[2019-11-29] MEDS: LOSARTAN POTASSIUM 12.5 MG PO SCH (09:00)
[2019-11-29] MEDS: SIMBRINZA OU SCH ×2 (09:00→21:00)
[2019-11-29] MEDS: EYE OU SCH ×2 (09:00→21:00)
[2019-11-29] MEDS: FUROSEMIDE 40 MG TABLET PO SCH (09:05)
[2019-11-29] MEDS: CETIRIZINE HCL 5 MG TABLET PO SCH (09:05)
[2019-11-29] MEDS: METOPROLOL TARTRATE 25 MG TAB PO SCH ×2 (09:05→21:18)
[2019-11-29] MEDS: FAMOTIDINE 20MG TAB 20 MG TAB PO SCH (09:05)
[2019-11-29] MEDS: ALLOPURINOL 300 MG TABLET PO SCH (09:05)
[2019-11-29] MEDS: ASPIRIN 81 MG EC TAB PO SCH (09:05)
[2019-11-29] MEDS: APIXABAN 5 MG TABLET PO SCH ×2 (09:06→21:18)
[2019-11-29] MEDS: TAMSULOSIN HCL 0.4 MG CAP.ER.24H PO SCH (09:06)
--- NOTE | 2019-11-29 10:00 | NUR ---
cm note per Laura Kaur CMD, states [facility] has denied due to no covid beds at present.
[2019-11-29 11:00] VITALS: BP 132/54
--- NOTE | 2019-11-29 14:41 | NUR ---
cm note spoke to pt regarding denial at [facility] due to no covid beds, and discussed alternate snfs, [facility] or [facility], pt requests i speak to daughter he is ok with any snf, but wants cm to speak to her about it. . regarding placement. spoke to daughter Shalini shankar [phone] and discussed current facilities accepting covid pts, [facility] and [facility]. due to [facility] no beds available for covid. states [facility] or [facility] is okay with her. obtained consent. per daughter states pt has to be placed at a facility unable to go home. will make referral.
[2019-11-29 16:00] VITALS: BP 167/85
--- NOTE | 2019-11-29 17:00 | NUR ---
cm note call received from richa szymanski from [email or web address]. states pt stil with no approval, but they have submitted. call made to Alexus szymanski with [employer] and provided montessori paraprofessional # [phone]. states nothing approved yet, updated richa szymanski from [email or web address]. to follow-up.
--- NOTE | 2019-11-29 17:25 | NUR ---
cm note call received from Alexus with and states she just got approval will call richa Henry with [facility] to update. Addendum: 11/29/19 at 4 by IVÁN PANDYA CM cm note updated pt and daughter re acceptance at [facility] verbalize understanding of possible transfer to day.
--- NOTE | 2019-11-29 17:40 | NUR ---
cm note spoke to deepika primary nurse for pt, and updated that pt is approved for [facility]. states will followup with md for orders.
--- NOTE | 2019-11-29 20:05 | NUR ---
TRANSFER PENDING Spoke with Sheila at [facility] ([phone]) she states that she can not accept the patient at this time as she was not told of this patient. She states she will speak with her Director and have the teacher physically impaired [facility].
[2019-11-29 20:43] VITALS: BP 157/91
[2019-11-29] MEDS: BIMATOPROST OU SCH (21:00)
[2019-11-29] MEDS: AZITHROMYCIN 500MG+NS 250ML 250 ML IV SCH (21:16)
[2019-11-29] MEDS: ATORVASTATIN CALCIUM 20 MG TABLET PO SCH (21:18)
--- NOTE | 2019-11-29 21:35 | NUR ---
TRANSFER PENDING Kenton from [facility] called to say that patient had been accepted. Report given. EMS called and face sheet and order sheet faxed, EMS transfer pending.
[2019-11-29 23:54] VITALS: BP 160/95
== END 2019-11-29 23:57 | DRG 177 ==
LOC: EDH 14:47 → EDHIP 17:56 → 2DH 11-28 01:40
PROVIDERS: ADMIT Internal Medicine Critical Care Medicine; ATTEND Internal Medicine Critical Care Medicine
DX: U07.1 COVID-19 (principal); J96.01 Acute respiratory failure with hypoxia; J12.89 Other viral pneumonia; E87.4 Mixed disorder of acid-base balance; I11.0 Hypertensive heart disease with heart failure; I48.91 Unspecified atrial fibrillation; I25.10 Atherosclerotic heart disease of native coronary artery without angina pectoris; Z95.1 Presence of aortocoronary bypass graft; I50.9 Heart failure, unspecified; E11.9 Type 2 diabetes mellitus without complications; E78.5 Hyperlipidemia, unspecified; I35.0 Nonrheumatic aortic (valve) stenosis; I48.0 Paroxysmal atrial fibrillation; Z79.01 Long term (current) use of anticoagulants; Z79.82 Long term (current) use of aspirin; Z79.899 Other long term (current) drug therapy
CPT/HCPCS: 36415; 36600; 71045; 80048; 80053; 82550; 82728; 82803; 82948; 83036; 83605; 83735; 83874; 83880; 84145; 84484; 85025; 85378; 85610; 85730; 87040; 93005; 97039; 99291; G0378; J0456; J0583; J0696; J1644; J1650; J1815; J2920; J3490; Q9967; U0003

== ENCOUNTER → 2020-09-24 | Outpatient (CLI) | payer OTHER | END | disposition home or self-care (01) | LOC: SHCH 10:18 | PROVIDERS: ATTEND Internal Medicine Cardiovascular Disease | DX: I65.23 Occlusion and stenosis of bilateral carotid arteries (principal) | CPT/HCPCS: 93880 ==

== ENCOUNTER 2022-03-07 10:08 | Emergency (ER) | payer OTHER ==
[~2022-03-07] VITALS: Ht 162.6 cm; Wt 98.4 kg
[2022-03-07 10:30] LABS: BASOPHILS % (AUTO) 0.5 % (0.0-5.0); EOSINOPHILS % (AUTO) 2.2 % (0.0-8.0); HEMATOCRIT 42.3 % (42-54); LYMPHOCYTES % (AUTO) 13.7 % (21.0-51.0); MEAN CORPUSCULAR HGB CONC 33.1 g/dL (32.0-36.0); MEAN CORPUSCULAR VOLUME 87.6 fL (79-99); MONOCYTES % (AUTO) 9.5 % (3.0-13.0); NEUTROPHILS % (AUTO) 73.9 % (40.0-77.0); PLATELET COUNT (AUTO) 142 K/uL (130-400); RED BLOOD CELL COUNT(AUTO) 4.83 MIL/uL (4.50-6.20); RED CELL DISTRIBUTION WIDTH 13.8 % (11.0-15.5); WHITE BLOOD COUNT (AUTO) 6.3 K/uL (4.8-10.8)
[2022-03-07 10:36] LABS: CREATININE 1.3 mg/dL (0.5-1.5); POTASSIUM 4.2 mmol/L (3.5-5.1)
[2022-03-07 10:41] LABS: ALBUMIN 3.8 g/dL (3.5-5.0); TOTAL PROTEIN, SERUM 7.1 g/dL (6.0-8.3)
[2022-03-07 11:31] LABS: B-TYPE NATRIURETIC PEPTIDE 267 pg/mL (0-100)
[2022-03-07 11:32] LABS: APPEARANCE,URINE CLEAR (CLEAR); BILIRUBIN,URINE NEGATIVE (NEGATIVE); COLOR,URINE COLORLESS (YELLOW); GLUCOSE, URINE (UA) NEGATIVE (NEGATIVE); KETONES,URINE NEGATIVE (NEGATIVE); LEUKOCYTE ESTERASE ,URINE NEGATIVE Leu/uL (NEGATIVE); NITRATE,URINE NEGATIVE (NEGATIVE); OCCULT BLOOD,URINE NEGATIVE (NEGATIVE); PH,URINE 6.5 (5.0-8.0); PROTEIN,URINE NEGATIVE (NEGATIVE); UROBILINOGEN,URINE 0.2 mg/dL (0.2-1.0)
[2022-03-07] MEDS ORDERED: ALBU6.7H14 IH (12:39)
[2022-03-07] MEDS ORDERED: HYDRALAZINE 20MG/ML VIAL IV ONE (13:00)
[2022-03-07 13:32] VITALS: BP 145/66
== END 2022-03-07 13:38 | disposition home or self-care (01) ==
LOC: EDH 10:08
DX: J44.1 Chronic obstructive pulmonary disease with (acute) exacerbation (principal); Z20.822 Contact with and (suspected) exposure to COVID-19; Z79.82 Long term (current) use of aspirin; Z79.899 Other long term (current) drug therapy; Z98.890 Other specified postprocedural states; Z60.2 Problems related to living alone
CPT/HCPCS: 99285; 96374; 71045; 87635; 84484; 80053; 83880; 85025; 87804 ×2; 81003; 36415; 93005 ×2; C9803; J0360

== ENCOUNTER → 2022-10-03 | Outpatient (CLI) | payer OTHER ==
[~2022-10-03] MED LIST changes: +ALBU6.7H14 IH
[2022-10-03 12:29] LABS: ALBUMIN 3.7 g/dL (3.5-5.0); CREATININE 1.7 mg/dL (0.5-1.5); MAGNESIUM 2.2 mg/dL (1.80-2.40); POTASSIUM 4.3 mmol/L (3.5-5.1); TOTAL PROTEIN, SERUM 6.9 g/dL (6.0-8.3)
== END | disposition home or self-care (01) ==
LOC: LAB 10:15
PROVIDERS: ATTEND Physician Assistant
DX: I10 Essential (primary) hypertension (principal); E78.5 Hyperlipidemia, unspecified
CPT/HCPCS: 36415; 80053; 83735

== ENCOUNTER → 2022-10-17 | Outpatient (CLI) | payer OTHER ==
[~2022-10-17] MED LIST changes: +REGADENOSON 0.4 MG/5 ML PF SYG IVP ONE
== END | disposition home or self-care (01) ==
LOC: SHCH 08:01
PROVIDERS: ATTEND Internal Medicine Cardiovascular Disease
DX: R07.9 Chest pain, unspecified (principal); I51.7 Cardiomegaly; I48.91 Unspecified atrial fibrillation
CPT/HCPCS: 78452; 96374; 93017; J2785; A9500 ×2

== ENCOUNTER → 2024-03-19 | Outpatient (CLI) | payer OTHER ==
[~2024-03-19] MED LIST changes: -AEC81 PO; +ALLO100T PO; -ALLO300T2 PO; +APIX2.5T PO; -APIX5TAB PO; -BIMA2.5D4 OU; -BRIN8DRO OU; -CETI10TA57 PO; +DAPA10TA PO; +DOCU100C33 PO; -FAMO20TA8 PO; +FAMO40TA7 PO; +HYDR25TA67 PO; +ISOS60TA77 PO; +LORA10TA7 PO; -LOSA25TA41 PO; +METF-444 PO; +METO-391 PO; -METO25TA6 PO; +MIRT-22 PO; -PIOG30TA70 PO; -REGADENOSON 0.4 MG/5 ML PF SYG IVP ONE; -TAMS0.4C32 PO; -TIMO.5OS OU; +TRAZ-187 PO; -TRIA15CR45 TP
[2024-03-19 12:34] LABS: ALBUMIN 3.9 g/dL (3.5-5.0); BILIRUBIN,TOTAL 0.7 mg/dL (0.2-1.0); CREATININE 1.7 mg/dL (0.5-1.3); POTASSIUM 3.9 mmol/L (3.5-5.1); TOTAL PROTEIN, SERUM 6.8 g/dL (6.0-8.3)
== END | disposition home or self-care (01) ==
LOC: LAB 10:18
PROVIDERS: ATTEND Internal Medicine Cardiovascular Disease
DX: I10 Essential (primary) hypertension (principal); E78.5 Hyperlipidemia, unspecified
CPT/HCPCS: 36415; 80053; 80061; 83880

== ENCOUNTER → 2024-04-17 | Outpatient (CLI) | payer OTHER ==
[2024-04-17 13:17] LABS: ALBUMIN 4.1 g/dL (3.5-5.0); BILIRUBIN,TOTAL 1.2 mg/dL (0.2-1.0); CREATININE 1.6 mg/dL (0.5-1.3); POTASSIUM 3.8 mmol/L (3.5-5.1); TOTAL PROTEIN, SERUM 7.2 g/dL (6.0-8.3)
== END | disposition home or self-care (01) ==
LOC: LAB 09:29
PROVIDERS: ATTEND Nurse Practitioner Acute Care
DX: I10 Essential (primary) hypertension (principal); E78.5 Hyperlipidemia, unspecified
CPT/HCPCS: 36415; 80053; 80061

== ENCOUNTER → 2024-05-20 | Outpatient (CLI) | payer OTHER ==
[2024-05-20 12:12] LABS: BASOPHILS # (AUTO) 0.03 K/uL (0.00-0.20); BASOPHILS % (AUTO) 0.4 % (0.0-5.0); EOSINOPHILS # (AUTO) 0.12 K/uL (0.00-0.70); EOSINOPHILS % (AUTO) 1.7 % (0.0-8.0); HEMATOCRIT 46.6 % (42-54); IMMATURE GRANULOCYTE ABSOLUTE 0.02 K/uL (0-1); LYMPHOCYTES # (AUTO) 0.9 K/uL (1.0-4.8); MEAN CORPUSCULAR HEMOGLOBIN 29.4 pg (27.0-33.0); MEAN CORPUSCULAR HGB CONC 33.3 g/dL (32.0-36.0); MEAN CORPUSCULAR VOLUME 88.4 fL (79-99); MONOCYTES # (AUTO) 0.6 K/uL (0.1-1.0); MONOCYTES % (AUTO) 7.9 % (3.0-13.0); NEUTROPHILS # (AUTO) 5.4 K/uL (1.8-7.7); NEUTROPHILS % (AUTO) 76.7 % (40.0-77.0); PLATELET COUNT (AUTO) 146 K/uL (130-400); RED BLOOD CELL COUNT(AUTO) 5.27 MIL/uL (4.50-6.20); RED CELL DISTRIBUTION WIDTH 14.7 % (11.0-15.5)
[2024-05-20 12:41] LABS: ALBUMIN 4.1 g/dL (3.5-5.0); BILIRUBIN,TOTAL 1.2 mg/dL (0.2-1.0); CREATININE 1.4 mg/dL (0.5-1.3); MAGNESIUM 1.9 mg/dL (1.80-2.40); POTASSIUM 3.7 mmol/L (3.5-5.1); TOTAL PROTEIN, SERUM 6.9 g/dL (6.0-8.3)
== END | disposition home or self-care (01) ==
LOC: LAB 10:47
PROVIDERS: ATTEND Nurse Practitioner Acute Care
DX: I10 Essential (primary) hypertension (principal); E78.5 Hyperlipidemia, unspecified
CPT/HCPCS: 36415; 80053; 83735; 83880; 85025

== ENCOUNTER 2024-10-24 08:19 | Day surgery (SDC) | payer OTHER ==
[2024-10-22 10:58] LABS: BASOPHILS # (AUTO) 0.04 K/uL (0.00-0.20); BASOPHILS % (AUTO) 0.5 % (0.0-5.0); EOSINOPHILS # (AUTO) 0.12 K/uL (0.00-0.70); EOSINOPHILS % (AUTO) 1.6 % (0.0-8.0); HEMATOCRIT 47.4 % (42-54); IMMATURE GRANULOCYTE ABSOLUTE 0.03 K/uL (0-1); LYMPHOCYTES # (AUTO) 0.9 K/uL (1.0-4.8); LYMPHOCYTES % (AUTO) 12.2 % (21.0-51.0); MEAN CORPUSCULAR HEMOGLOBIN 27.4 pg (27.0-33.0); MEAN CORPUSCULAR HGB CONC 31.6 g/dL (32.0-36.0); MEAN CORPUSCULAR VOLUME 86.7 fL (79-99); MONOCYTES # (AUTO) 0.7 K/uL (0.1-1.0); NEUTROPHILS # (AUTO) 5.7 K/uL (1.8-7.7); NEUTROPHILS % (AUTO) 76.3 % (40.0-77.0); PLATELET COUNT (AUTO) 189 K/uL (130-400); RED BLOOD CELL COUNT(AUTO) 5.47 MIL/uL (4.50-6.20); RED CELL DISTRIBUTION WIDTH 14.8 % (11.0-15.5); WHITE BLOOD COUNT (AUTO) 7.4 K/uL (4.8-10.8)
[2024-10-22 11:03] LABS: CREATININE 1.6 mg/dL (0.5-1.3); POTASSIUM 5.1 mmol/L (3.5-5.1)
--- NOTE | 2024-10-22 11:08 | EKG ---
[facility] Test Date: 2024-10-22 Test Time: 10:36:13 Pat Name: NANCY BLANTON Department: [facility] Room: Gender: M Preassembler And Inspector: [id number] : 1940 Requested By: Yany GOMEZ Order Number: [id number] Reading MD: Juli Ruth Measurements Intervals Geismar Rate: 91 P: 0 WI: 0 QRS: -36 QRSD: 158 T: 143 QT: 430 QTc: 529 Interpretive Statements Atrial fibrillation Left bundle branch block ST elevation secondary to IVCD Compared to ECG 03/07/2022 10:12:33 Left bundle-branch block now present Intraventricular conduction delay now present ST (T wave) deviation now present Left ventricular hypertrophy no longer present Myocardial infarct finding no longer present Electronically Signed On 10-22-2024 18:53:50 CDT by Juli Ruth Please click the below link to view image of tracing.
[2024-10-22 11:10] LABS: INR 1.16 (0.85-1.15); PROTHROMBIN TIME 12.1 SEC (9.6-11.6)
[2024-10-22 11:12] LABS: PARTIAL THROMBOPLASTIN TIME 33.3 SEC (26.3-35.5)
[2024-10-22 11:19] VITALS: BP 110/78; PULSE 98; RESP 17; TEMP 97.3
--- NOTE | 2024-10-23 11:00 | NUR ---
RE: LABS PT/INR AND BMP RESULTS REPORTED TO ROBBY VIVAR NP. NO NEW ORDERS RECEIVED.
[~2024-10-24] VITALS: Ht 162.6 cm; Wt 73.1 kg
[2024-10-24] VITALS (11 sets, daily range): BP systolic 104–148; BP diastolic 8–99; PULSE 86–105; RESP 13–18; TEMP 97.2–97.9
[~2024-10-24 08:19] MED LIST changes: -ALBU6.7H14 IH; -ATOR20TA65 PO; +ATOR40TA71 PO; +CYAN-52 PO; -DOCU100C33 PO; -FAMO40TA7 PO; -HYDR25TA67 PO; -ISOS60TA77 PO; -LEVO25TA54 PO; -MIRT-22 PO; +OMEP40CA21 PO; +TAMS-55 PO; +TRAZ-185 PO; -TRAZ-187 PO
[2024-10-24] MEDS: 0.9%NACL 1000ML 1,000 ML IV SCH (09:16)
[2024-10-24] MEDS ORDERED: LIDOCAINE HCL 1% MDV 50ML VIAL ONE (10:40)
[2024-10-24] MEDS ORDERED: SODIUM BICARB 50MEQ 50ML VIAL 0 ML ONE (10:40)
[2024-10-24] MEDS ORDERED: ceFAZolin SODIUM 1 GM VIAL ONE (10:40)
[2024-10-24] MEDS ORDERED: BUPIvacaine/PF 0.25% 30ML VIAL IJ ONE (10:41)
[2024-10-24] MEDS ORDERED: FENTanyl CITRate PF 50 MCG/1 ML 2ML VIAL ONE ×2 (11:02→12:08)
[2024-10-24] MEDS ORDERED: MIDAZOLAM HCL 1 MG/ML 2ML VIAL ONE ×3 (11:02→12:09)
[2024-10-24] MEDS ORDERED: IOHEXOL-350 50ML VIAL IV ONE (11:23)
--- NOTE | 2024-10-24 13:20 | NUR ---
PT ARRIVED VSS NAD LEFT CHEST PRESSURE DRESSING INTACT.
[2024-10-24] MEDS ORDERED: DEXTROSE 50%-WATER 50 ML DISP.SYRIN IV PRN (13:30)
--- NOTE | 2024-10-24 14:23 | HMCIMG ---
Exam Type: CHEST 1VW Clinical Information: s/p AICD Comparison: None Findings: There is cardiomegaly and there is status post median sternotomy. The lungs are clear of infiltrates. Left-sided cardiac pacemaker is noted with leads in place. Impression: Clear lungs.
[2024-10-24] MEDS ORDERED: INSULIN humuLIN R 100 UNIT/ML 3ML SQ SCH (16:30)
--- NOTE | 2024-10-24 17:45 | NUR ---
left upper chest pressure dressing removed dressing dry intact soft nontender pt ready to go home no adr to iv antibiotics will dc camilla
[2024-10-24] MEDS: ceFAZolin SODIUM 1 GM VIAL IVPB ONE (17:46)
== END 2024-10-24 17:57 | disposition home or self-care (01) ==
LOC: DAH 08:19
PROVIDERS: ATTEND Internal Medicine Cardiovascular Disease
DX: I42.9 Cardiomyopathy, unspecified (principal); I44.7 Left bundle-branch block, unspecified; I25.5 Ischemic cardiomyopathy; I48.91 Unspecified atrial fibrillation; E11.22 Type 2 diabetes mellitus with diabetic chronic kidney disease; I13.0 Hypertensive heart and chronic kidney disease with heart failure and stage 1 through stage 4 chronic kidney disease, or unspecified chronic kidney disease; N18.32 Chronic kidney disease, stage 3b; I50.42 Chronic combined systolic (congestive) and diastolic (congestive) heart failure; I48.21 Permanent atrial fibrillation; E78.5 Hyperlipidemia, unspecified; I25.10 Atherosclerotic heart disease of native coronary artery without angina pectoris; Z79.899 Other long term (current) drug therapy; Z79.84 Long term (current) use of oral hypoglycemic drugs; Z79.890 Hormone replacement therapy; Z79.01 Long term (current) use of anticoagulants; Z95.1 Presence of aortocoronary bypass graft
CPT/HCPCS: 80048; 85025; 85610; 85730; 36415; 93005; 33249; 99156; 99157 ×5; 33225; 82948; 71045; C1777; C1898; C1769 ×2; C1900; C1882; C1894; J3010 ×2; J0690 ×2; J0665; J2250 ×3; J3490; Q9967; A4215; A4222; A4221; A4663; A4216; A4606; A4223 ×3; C-1882